=== PATIENT | female | born 1995 | race African-American/Black ===

== ENCOUNTER 2018-04-02 | Inpatient (IN) ==
[2018-04-02] MEDS ORDERED: Metoprolol Tartrate 25 MG Tablet PO ONE (01:23)
--- NOTE | 2018-04-02 02:44 | MR ---
EXAM DATE: 04/02/2018 2:01 AM EDT AGE/SEX: 22 years / Female INDICATIONS: . Bilateral lower leg pain for two months. CLINICAL DATA: This is the patient's initial encounter. Patient reports that signs and symptoms have been present for 2 months and indicates a pain score of 9/10. MEDICAL/SURGICAL HISTORY: Lupus. section. COMPARISON: No prior exams available for comparison. TECHNIQUE: Multiplanar, multisequence MRI of the lumbar spine was performed without contrast. Patie nt was scanned in a sitting position; neutral, flexion, and extension scans were performed in the sa gittal plane. FINDINGS: There are bilateral pars defects at the lumbosacral junction with a minimal grade 1 anterolisthesis. This does not result in significant spinal canal or foraminal stenosis. No discrete disc protrusions. Conus medullaris intact. CONCLUSION: 1. 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 No significant c anal or foraminal stenosis within the lumbar spine. Electronically signed by: Matthias Diallo MD 04/02/2018 2:42 AM EDT
[2018-04-02 03:17] LABS: Hematocrit 30.8 % (35.0-46.0); Hemoglobin 9.7 gm/dL (11.6-15.3); Mean Corpuscular HGB Conc 31.5 % (32.0-36.0); Mean Corpuscular Hemoglobin 25.7 pg (27.0-34.0); Mean Corpuscular Volume 81.5 fL (80.0-100.0); Platelet Count 463 th/mm3 (150-450); Red Blood Count 3.78 mil/mm3 (4.00-5.30); Red Cell Distribution Width 15.2 % (11.6-17.2); White Blood Count 4.8 th/mm3 (4.0-11.0)
[2018-04-02 03:50] LABS: Lymphocytes 49 % (9-44); Monocytes 12 % (0-8); Platelet Morphology Normal (Normal); RBC Morphology Normal (Normal)
[2018-04-02 03:56] LABS: Alkaline Phosphatase 54 U/L (45-117); Creatine Kinase 1117 U/L (26-192); Total Protein 9.6 g/dL (6.4-8.2)
[2018-04-02 04:15] LABS: Alanine Aminotransferase 81 U/L (10-53); Albumin 2.8 g/dL (3.4-5.0); Anion Gap 8 meq/L (5-15); Aspartate Aminotransferase 108 U/L (15-37); Blood Urea Nitrogen 16 mg/dL (7-18); Calcium 8.2 mg/dL (8.5-10.1); Carbon Dioxide 28.5 meq/L (21.0-32.0); Chloride 103 meq/L (98-107); Glomerular Filtration Rate Greater Than 89 mL/min (>89); Glucose,Random 88 mg/dL (74-106); Potassium 4.2 meq/L (3.5-5.1); Sodium 139 meq/L (136-145)
--- NOTE | 2018-04-02 04:21 | ED ---
HPI General Chief complaint: Extremity Problem,Nontraumatic Stated complaint: Foot/Leg pain and tingling Time Seen by Provider: 04/02/18 01:02 Source: patient Mode of arrival: ambulatory Limitations: no limitations History of Present Illness HPI Narrative: 22-year-old female came to the emergency room with history of bilateral lower extremity pain. Patient says that this pain has been going on for months now. She has mentioned this to her primary care who has referred her to a mixed livestock farmer. A working diagnosis of plantar fasciitis has been made. Patient was started on Advil but she has not been getting any relief. Patient has history of lupus and is on Plaquenil, CellCept and prednisone. Patient says the CellCept has recently been started and the pain has been there much before that. Patient has been on prednisone for many months. Patient sees a tearoom host/hostess for her lupus, Dr. Meredith. Patient describes the pain as left leg worse than the right. Pain initially was in the bottom of her feet and is now traveling more proximal. There is slightly tingling of her bilateral feet. Vital signs were suggestive of tachycardia. However patient says that she has history of tachycardia as mentioned to her by multiple physicians. However patient has not had any treatment or workup for it. She had her thyroid checked about 3 weeks ago and was told it was within normal limits. Pain is significant and getting worse. It is aching in quality. Pain gets worse upon walking. Complaint: Reports extremity pain Onset (ago): month(s) Pain Consistency: constant Location: Reports left, right and lower extremity Quality: Reports aching Radiation: Reports none Relieving factors: nothing Exacerbating factors: walking Associated symptoms: Reports denies other symptoms Related Data Previous Rx's Medication Instructions Recorded prednisone 50 mg PO DAILY 7 Days #7 tab 04/05/18 Allergies Allergy/AdvReac Type Severity Reaction Status Date / Time No Known Allergies Allergy Verified 04/02/18 00:15 Review of Systems ROS: all other systems reviewed are negative Musculoskeletal Reports myalgias PMFSH Medical History Medical History Lupus (Acute) Social History Social History Substance History: No History of Abuse Second Hand Smoke Exposure: No Smoking Status: Never smoker How Often Do You Have a Drink Containing Alcohol: Never Recent Travel in [facility] within the Last 8 Weeks: No Recent Out of Country Travel within the Last 8 Weeks: No Immunization History Tetanus Immunization: Unsure Exam Narrative Exam Narrative: GENERAL: Awake, alert, anxious, moderate distress SKIN: Focused skin assessment warm/dry. HEAD: Atraumatic. Normocephalic. EYES: Pupils equal and round. No scleral icterus. No injection or drainage. ENT: No nasal bleeding or discharge. Mucous membranes pink and moist. NECK: Trachea midline. No JVD. CARDIOVASCULAR: Regular rate and rhythm. No murmur appreciated. RESPIRATORY: No accessory muscle use. Clear to auscultation. Breath sounds equal bilaterally. GASTROINTESTINAL: Abdomen soft, non-tender, nondistended. Hepatic and splenic margins not palpable. MUSCULOSKELETAL: No obvious deformities. No clubbing. No cyanosis. No edema. Some muscular atrophy of lower extremity noticed in the calf muscle. Distal pulses intact. SLR was possible positive. NEUROLOGICAL: Awake and alert. No obvious cranial nerve deficits. Motor grossly within normal limits. Normal speech. PSYCHIATRIC: Appropriate mood and affect; insight and judgment normal. Course Initial Documented Vital Signs Temperature 100 F H 04/02/18 00:16 Pulse Rate 130 H 04/02/18 00:16 Respiratory Rate 14 04/02/18 00:16 Blood Pressure 129/84 04/02/18 00:16 Pulse Oximetry 99 04/02/18 00:16 Last Documented Vital Signs Temperature 97.9 F 04/05/18 20:00 Pulse Rate 88 04/05/18 20:00 Respiratory Rate 18 04/05/18 20:43 Blood Pressure 123/62 04/05/18 20:00 Pulse Oximetry 99 04/05/18 20:00 Medical Decision Making [facility] Narrative Medical decision making narrative: 4:30 AM patient was a difficult stick and eventually blood was obtained. Blood test results are back and suggestive of rhabdomyolysis. MRI of the lumbar spine was negative for any radiculopathy. There is moderately elevated platelet count as well. Patient was given Lopressor for her tachycardia with no significant change. I have ordered 1 L of IV fluid bolus. At this point I am concerned for myositis related to lupus versus medication related myositis. I discussed this with the patient and recommended admission. Patient was okay with it. I discussed the case with the hospitalist was accepted the patient. Medical Screen Exam Complete: Yes Emergency Medical Condition: Yes Lab Data Result diagrams: 04/05/18 08:21 04/05/18 10:31 POC Results POC Urine Results Negative Lab Results 04/02/18 04/02/18 04/02/18 Range/Units 03:10 03:10 08:54 WBC 4.8 (4.0-11.0) th/mm3 RBC 3.78 L (4.00-5.30) mil/mm3 Hgb 9.7 L (11.6-15.3) gm/dL Hct 30.8 L (35.0-46.0) % MCV 81.5 (80.0-100.0) fL MCH 25.7 L (27.0-34.0) pg MCHC 31.5 L (32.0-36.0) % RDW 15.2 (11.6-17.2) % Plt Count 463 H (150-450) th/mm3 MPV 7.0 (7.0-11.0) fL Prelim Diff (Auto) Slide review pending Neut % (Auto) (16.0-70.0) % Lymph % (Auto) (9.0-44.0) % [place] % (Auto) (0.0-8.0) % Eos % (Auto) (0.0-4.0) % Baso % (Auto) (0.0-2.0) % Neut # (Auto) (1.8-7.7) th/mm3 Lymph # (Auto) (1.0-4.8) th/mm3 [place] # (Auto) (0.0-0.9) th/mm3 Eos # (Auto) (0.0-0.4) th/mm3 Baso # (Auto) (0.0-0.2) th/mm3 WBC Differential Manual diff final Seg Neuts % (Manual) 36 (16-70) % Band Neuts % (Manual) 3 (0-6) % Lymphocytes % (Manual) 49 H (9-44) % Monocytes % (Manual) 12 H (0-8) % Plasma Cell % (Manual) (0-0) % Abs Neuts (Manual) 1.9 (1.8-7.7) th/mm3 Differential Comment . Toxic Granulation (None) Platelet Estimate High H (Normal) Platelet Morphology Normal (Normal) RBC Morphology Normal (Normal) ESR (0-20) mm/hr Sodium 139 (136-145) meq/L Potassium 4.2 (3.5-5.1) meq/L Chloride 103 (98-107) meq/L Carbon Dioxide 28.5 (21.0-32.0) meq/L Anion Gap 8 (5-15) meq/L BUN 16 (7-18) mg/dL Creatinine 0.85 (0.50-1.00) mg/dL Estimated GFR Greater than 89 (>89) mL/min Random Glucose 88 (74-106) mg/dL Calcium 8.2 L (8.5-10.1) mg/dL Magnesium (1.5-2.5) mg/dL Total Bilirubin 0.2 (0.2-1.0) mg/dL AST 108 H (15-37) U/L ALT 81 H (10-53) U/L Alkaline Phosphatase 54 (45-117) U/L Total Creatine Kinase 1117 H (26-192) U/L CK-MB (CK-2) 33.7 H (0.5-3.6) ng/mL CK-MB (CK-2) % 3.0 (0.0-4.0) % Total Protein 9.6 H (6.4-8.2) g/dL Albumin 2.8 L (3.4-5.0) g/dL Beta HCG, Qual (0-5) mIU/mL Urine Color Yellow (Yellw/Straw) Urine Clarity Clear (Clear) Urine pH 6.0 (5.0-8.5) Ur Specific [place] 1.018 (1.002-1.035) Urine Protein 500 or greater (Neg-Trace) mg/dL Urine Glucose (UA) Negative (Negative) mg/dL Urine Ketones Negative (Negative) mg/dL Urine Occult Blood Small H (Negative) Urine Nitrate Negative (Negative) Urine Bilirubin Negative (Negative) Urine Urobilinogen Less than 2 (Less than 2) mg/dL Ur Leukocyte Esterase Negative (Negative) Urine RBC 1 (0-3) /hpf Urine WBC 1 (0-5) /hpf Ur Squamous Epith Cells 1 (0-5) /hpf Hyaline Casts 4 (0-3) /lpf Urine Mucus Few H (Occasional) /lpf Urine Yeast Rare H (None) /hpf Micro UA Comment Culture not ind Ur Microscopic Review Not Reportable Urine Culture Comments Culture not ind Urine Opiates Screen (Neg) Ur Barbiturates Screen (Neg) Ur Amphetamines Screen (Neg) U Benzodiazepines Scrn (Neg) Urine Cocaine Screen (Neg) Mycophenolic Acid (1.0 - 3.5) mcg/mL MPA Glucuronide (35 - 100) mcg/mL U Cannabinoids Screen (Neg) Rheumatoid Factor Scrn (Negative) Rheumatoid Factor Titer JACKELYN Screen (Neg) 04/02/18 04/02/18 04/02/18 Range/Units 08:54 09:00 14:10 WBC (4.0-11.0) th/mm3 RBC (4.00-5.30) mil/mm3 Hgb (11.6-15.3) gm/dL Hct (35.0-46.0) % MCV (80.0-100.0) fL MCH (27.0-34.0) pg MCHC (32.0-36.0) % RDW (11.6-17.2) % Plt Count (150-450) th/mm3 MPV (7.0-11.0) fL Prelim Diff (Auto) Neut % (Auto) (16.0-70.0) % Lymph % (Auto) (9.0-44.0) % [place] % (Auto) (0.0-8.0) % Eos % (Auto) (0.0-4.0) % Baso % (Auto) (0.0-2.0) % Neut # (Auto) (1.8-7.7) th/mm3 Lymph # (Auto) (1.0-4.8) th/mm3 [place] # (Auto) (0.0-0.9) th/mm3 Eos # (Auto) (0.0-0.4) th/mm3 Baso # (Auto) (0.0-0.2) th/mm3 WBC Differential Seg Neuts % (Manual) (16-70) % Band Neuts % (Manual) (0-6) % Lymphocytes % (Manual) (9-44) % Monocytes % (Manual) (0-8) % Plasma Cell % (Manual) (0-0) % Abs Neuts (Manual) (1.8-7.7) th/mm3 Differential Comment Toxic Granulation (None) Platelet Estimate (Normal) Platelet Morphology (Normal) RBC Morphology (Normal) ESR (0-20) mm/hr Sodium (136-145) meq/L Potassium (3.5-5.1) meq/L Chloride (98-107) meq/L Carbon Dioxide (21.0-32.0) meq/L Anion Gap (5-15) meq/L BUN (7-18) mg/dL Creatinine (0.50-1.00) mg/dL Estimated GFR (>89) mL/min Random Glucose (74-106) mg/dL Calcium (8.5-10.1) mg/dL Magnesium (1.5-2.5) mg/dL Total Bilirubin (0.2-1.0) mg/dL AST (15-37) U/L ALT (10-53) U/L Alkaline Phosphatase (45-117) U/L Total Creatine Kinase 1046 H 996 H (26-192) U/L CK-MB (CK-2) 20.9 H 30.5 H (0.5-3.6) ng/mL CK-MB (CK-2) % 2.0 3.1 (0.0-4.0) % Total Protein (6.4-8.2) g/dL Albumin (3.4-5.0) g/dL Beta HCG, Qual Less than 1.0 (0-5) mIU/mL Urine Color (Yellw/Straw) Urine Clarity (Clear) Urine pH (5.0-8.5) Ur Specific [place] (1.002-1.035) Urine Protein (Neg-Trace) mg/dL Urine Glucose (UA) (Negative) mg/dL Urine Ketones (Negative) mg/dL Urine Occult Blood (Negative) Urine Nitrate (Negative) Urine Bilirubin (Negative) Urine Urobilinogen (Less than 2) mg/dL Ur Leukocyte Esterase (Negative) Urine RBC (0-3) /hpf Urine WBC (0-5) /hpf Ur Squamous Epith Cells (0-5) /hpf Hyaline Casts (0-3) /lpf Urine Mucus (Occasional) /lpf Urine Yeast (None) /hpf Micro UA Comment Ur Microscopic Review Urine Culture Comments Urine Opiates Screen Neg (Neg) Ur Barbiturates Screen Neg (Neg) Ur Amphetamines Screen Neg (Neg) U Benzodiazepines Scrn Neg (Neg) Urine Cocaine Screen Neg (Neg) Mycophenolic Acid (1.0 - 3.5) mcg/mL MPA Glucuronide (35 - 100) mcg/mL U Cannabinoids Screen Neg (Neg) Rheumatoid Factor Scrn (Negative) Rheumatoid Factor Titer JACKELYN Screen (Neg) 04/03/18 04/03/18 04/03/18 Range/Units 04:04 04:04 04:04 WBC 1.5 L (4.0-11.0) th/mm3 RBC 3.59 L (4.00-5.30) mil/mm3 Hgb 9.4 L (11.6-15.3) gm/dL Hct 29.6 L (35.0-46.0) % MCV 82.5 (80.0-100.0) fL MCH 26.2 L (27.0-34.0) pg MCHC 31.8 L (32.0-36.0) % RDW 16.0 (11.6-17.2) % Plt Count 417 (150-450) th/mm3 MPV 7.4 (7.0-11.0) fL Prelim Diff (Auto) Slide review pending Neut % (Auto) 39.6 (16.0-70.0) % Lymph % (Auto) 36.3 (9.0-44.0) % [place] % (Auto) 22.3 H (0.0-8.0) % Eos % (Auto) 1.3 (0.0-4.0) % Baso % (Auto) 0.5 (0.0-2.0) % Neut # (Auto) 0.6 L (1.8-7.7) th/mm3 Lymph # (Auto) 0.6 L (1.0-4.8) th/mm3 [place] # (Auto) 0.3 (0.0-0.9) th/mm3 Eos # (Auto) 0.0 (0.0-0.4) th/mm3 Baso # (Auto) 0.0 (0.0-0.2) th/mm3 WBC Differential Manual diff final Seg Neuts % (Manual) 45 (16-70) % Band Neuts % (Manual) 3 (0-6) % Lymphocytes % (Manual) 36 (9-44) % Monocytes % (Manual) 16 H (0-8) % Plasma Cell % (Manual) (0-0) % Abs Neuts (Manual) 0.7 L (1.8-7.7) th/mm3 Differential Comment . Toxic Granulation (None) Platelet Estimate Normal (Normal) Platelet Morphology Normal (Normal) RBC Morphology Normal (Normal) ESR 50 H (0-20) mm/hr Sodium 134 L (136-145) meq/L Potassium 4.3 (3.5-5.1) meq/L Chloride 101 (98-107) meq/L Carbon Dioxide 26.9 (21.0-32.0) meq/L Anion Gap 6 (5-15) meq/L BUN 9 (7-18) mg/dL Creatinine 0.66 (0.50-1.00) mg/dL Estimated GFR Greater than 89 (>89) mL/min Random Glucose 86 (74-106) mg/dL Calcium 8.4 L (8.5-10.1) mg/dL Magnesium (1.5-2.5) mg/dL Total Bilirubin 0.4 (0.2-1.0) mg/dL AST 86 H (15-37) U/L ALT 70 H (10-53) U/L Alkaline Phosphatase 48 (45-117) U/L Total Creatine Kinase 996 H (26-192) U/L CK-MB (CK-2) 29.1 H (0.5-3.6) ng/mL CK-MB (CK-2) % 2.9 (0.0-4.0) % Total Protein 9.0 H D (6.4-8.2) g/dL Albumin 2.5 L (3.4-5.0) g/dL Beta HCG, Qual (0-5) mIU/mL Urine Color (Yellw/Straw) Urine Clarity (Clear) Urine pH (5.0-8.5) Ur Specific [place] (1.002-1.035) Urine Protein (Neg-Trace) mg/dL Urine Glucose (UA) (Negative) mg/dL Urine Ketones (Negative) mg/dL Urine Occult Blood (Negative) Urine Nitrate (Negative) Urine Bilirubin (Negative) Urine Urobilinogen (Less than 2) mg/dL Ur Leukocyte Esterase (Negative) Urine RBC (0-3) /hpf Urine WBC (0-5) /hpf Ur Squamous Epith Cells (0-5) /hpf Hyaline Casts (0-3) /lpf Urine Mucus (Occasional) /lpf Urine Yeast (None) /hpf Micro UA Comment Ur Microscopic Review Urine Culture Comments Urine Opiates Screen (Neg) Ur Barbiturates Screen (Neg) Ur Amphetamines Screen (Neg) U Benzodiazepines Scrn (Neg) Urine Cocaine Screen (Neg) Mycophenolic Acid (1.0 - 3.5) mcg/mL MPA Glucuronide (35 - 100) mcg/mL U Cannabinoids Screen (Neg) Rheumatoid Factor Scrn Negative (Negative) Rheumatoid Factor Titer Not Reportable JACKELYN Screen (Neg) 04/03/18 04/04/18 04/04/18 Range/Units 09:27 05:16 05:16 WBC 0.7 L (4.0-11.0) th/mm3 RBC 3.57 L (4.00-5.30) mil/mm3 Hgb 9.3 L (11.6-15.3) gm/dL Hct 29.4 L (35.0-46.0) % MCV 82.4 (80.0-100.0) fL MCH 26.1 L (27.0-34.0) pg MCHC 31.7 L (32.0-36.0) % RDW 15.7 (11.6-17.2) % Plt Count 413 (150-450) th/mm3 MPV 7.5 (7.0-11.0) fL Prelim Diff (Auto) Slide review pending Neut % (Auto) 55.0 (16.0-70.0) % Lymph % (Auto) 31.3 (9.0-44.0) % [place] % (Auto) 12.9 H (0.0-8.0) % Eos % (Auto) 0.0 (0.0-4.0) % Baso % (Auto) 0.8 (0.0-2.0) % Neut # (Auto) 0.4 L* (1.8-7.7) th/mm3 Lymph # (Auto) 0.2 L (1.0-4.8) th/mm3 [place] # (Auto) 0.1 (0.0-0.9) th/mm3 Eos # (Auto) 0.0 (0.0-0.4) th/mm3 Baso # (Auto) 0.0 (0.0-0.2) th/mm3 WBC Differential Manual diff final Seg Neuts % (Manual) 74 H (16-70) % Band Neuts % (Manual) (0-6) % Lymphocytes % (Manual) 18 (9-44) % Monocytes % (Manual) 6 (0-8) % Plasma Cell % (Manual) 2 H (0-0) % Abs Neuts (Manual) 0.5 L* (1.8-7.7) th/mm3 Differential Comment . Toxic Granulation 1+ H (None) Platelet Estimate High H (Normal) Platelet Morphology Normal (Normal) RBC Morphology (Normal) ESR (0-20) mm/hr Sodium Cancelled (136-145) meq/L Potassium Cancelled (3.5-5.1) meq/L Chloride Cancelled (98-107) meq/L Carbon Dioxide Cancelled (21.0-32.0) meq/L Anion Gap Cancelled (5-15) meq/L BUN Cancelled (7-18) mg/dL Creatinine Cancelled (0.50-1.00) mg/dL Estimated GFR Cancelled (>89) mL/min Random Glucose Cancelled (74-106) mg/dL Calcium Cancelled (8.5-10.1) mg/dL Magnesium 2.0 (1.5-2.5) mg/dL Total Bilirubin (0.2-1.0) mg/dL AST (15-37) U/L ALT (10-53) U/L Alkaline Phosphatase (45-117) U/L Total Creatine Kinase 839 H (26-192) U/L CK-MB (CK-2) 25.0 H (0.5-3.6) ng/mL CK-MB (CK-2) % 3.0 (0.0-4.0) % Total Protein (6.4-8.2) g/dL Albumin (3.4-5.0) g/dL Beta HCG, Qual (0-5) mIU/mL Urine Color (Yellw/Straw) Urine Clarity (Clear) Urine pH (5.0-8.5) Ur Specific [place] (1.002-1.035) Urine Protein (Neg-Trace) mg/dL Urine Glucose (UA) (Negative) mg/dL Urine Ketones (Negative) mg/dL Urine Occult Blood (Negative) Urine Nitrate (Negative) Urine Bilirubin (Negative) Urine Urobilinogen (Less than 2) mg/dL Ur Leukocyte Esterase (Negative) Urine RBC (0-3) /hpf Urine WBC (0-5) /hpf Ur Squamous Epith Cells (0-5) /hpf Hyaline Casts (0-3) /lpf Urine Mucus (Occasional) /lpf Urine Yeast (None) /hpf Micro UA Comment Ur Microscopic Review Urine Culture Comments Urine Opiates Screen (Neg) Ur Barbiturates Screen (Neg) Ur Amphetamines Screen (Neg) U Benzodiazepines Scrn (Neg) Urine Cocaine Screen (Neg) Mycophenolic Acid (1.0 - 3.5) mcg/mL MPA Glucuronide (35 - 100) mcg/mL U Cannabinoids Screen (Neg) Rheumatoid Factor Scrn (Negative) Rheumatoid Factor Titer JACKELYN Screen Pos H (Neg) 04/04/18 04/04/18 04/05/18 Range/Units 05:16 11:24 08:21 WBC 9.5 (4.0-11.0) th/mm3 RBC 3.78 L (4.00-5.30) mil/mm3 Hgb 10.0 L (11.6-15.3) gm/dL Hct 30.8 L (35.0-46.0) % MCV 81.6 (80.0-100.0) fL MCH 26.5 L (27.0-34.0) pg MCHC 32.5 (32.0-36.0) % RDW 15.8 (11.6-17.2) % Plt Count 491 H (150-450) th/mm3 MPV 7.9 (7.0-11.0) fL Prelim Diff (Auto) Neut % (Auto) 84.3 H (16.0-70.0) % Lymph % (Auto) 6.0 L (9.0-44.0) % [place] % (Auto) 9.3 H (0.0-8.0) % Eos % (Auto) 0.0 (0.0-4.0) % Baso % (Auto) 0.4 (0.0-2.0) % Neut # (Auto) 8.0 H (1.8-7.7) th/mm3 Lymph # (Auto) 0.6 L (1.0-4.8) th/mm3 [place] # (Auto) 0.9 (0.0-0.9) th/mm3 Eos # (Auto) 0.0 (0.0-0.4) th/mm3 Baso # (Auto) 0.0 (0.0-0.2) th/mm3 WBC Differential . Seg Neuts % (Manual) (16-70) % Band Neuts % (Manual) (0-6) % Lymphocytes % (Manual) (9-44) % Monocytes % (Manual) (0-8) % Plasma Cell % (Manual) (0-0) % Abs Neuts (Manual) (1.8-7.7) th/mm3 Differential Comment Auto diff final Toxic Granulation (None) Platelet Estimate (Normal) Platelet Morphology (Normal) RBC Morphology (Normal) ESR (0-20) mm/hr Sodium 133 L (136-145) meq/L Potassium 4.6 (3.5-5.1) meq/L Chloride 98 (98-107) meq/L Carbon Dioxide 27.1 (21.0-32.0) meq/L Anion Gap 8 (5-15) meq/L BUN 8 (7-18) mg/dL Creatinine 0.62 (0.50-1.00) mg/dL Estimated GFR Greater than 89 (>89) mL/min Random Glucose 120 H (74-106) mg/dL Calcium 8.7 (8.5-10.1) mg/dL Magnesium (1.5-2.5) mg/dL Total Bilirubin 0.2 (0.2-1.0) mg/dL AST 81 H (15-37) U/L ALT 63 H (10-53) U/L Alkaline Phosphatase 53 (45-117) U/L Total Creatine Kinase (26-192) U/L CK-MB (CK-2) (0.5-3.6) ng/mL CK-MB (CK-2) % (0.0-4.0) % Total Protein 9.3 H (6.4-8.2) g/dL Albumin 2.3 L (3.4-5.0) g/dL Beta HCG, Qual (0-5) mIU/mL Urine Color (Yellw/Straw) Urine Clarity (Clear) Urine pH (5.0-8.5) Ur Specific [place] (1.002-1.035) Urine Protein (Neg-Trace) mg/dL Urine Glucose (UA) (Negative) mg/dL Urine Ketones (Negative) mg/dL Urine Occult Blood (Negative) Urine Nitrate (Negative) Urine Bilirubin (Negative) Urine Urobilinogen (Less than 2) mg/dL Ur Leukocyte Esterase (Negative) Urine RBC (0-3) /hpf Urine WBC (0-5) /hpf Ur Squamous Epith Cells (0-5) /hpf Hyaline Casts (0-3) /lpf Urine Mucus (Occasional) /lpf Urine Yeast (None) /hpf Micro UA Comment Ur Microscopic Review Urine Culture Comments Urine Opiates Screen (Neg) Ur Barbiturates Screen (Neg) Ur Amphetamines Screen (Neg) U Benzodiazepines Scrn (Neg) Urine Cocaine Screen (Neg) Mycophenolic Acid Less than 0.5 L (1.0 - 3.5) mcg/mL MPA Glucuronide Less than 10 L (35 - 100) mcg/mL U Cannabinoids Screen (Neg) Rheumatoid Factor Scrn (Negative) Rheumatoid Factor Titer JACKELYN Screen (Neg) 04/05/18 04/05/18 Range/Units 10:31 10:31 WBC (4.0-11.0) th/mm3 RBC (4.00-5.30) mil/mm3 Hgb (11.6-15.3) gm/dL Hct (35.0-46.0) % MCV (80.0-100.0) fL MCH (27.0-34.0) pg MCHC (32.0-36.0) % RDW (11.6-17.2) % Plt Count (150-450) th/mm3 MPV (7.0-11.0) fL Prelim Diff (Auto) Neut % (Auto) (16.0-70.0) % Lymph % (Auto) (9.0-44.0) % [place] % (Auto) (0.0-8.0) % Eos % (Auto) (0.0-4.0) % Baso % (Auto) (0.0-2.0) % Neut # (Auto) (1.8-7.7) th/mm3 Lymph # (Auto) (1.0-4.8) th/mm3 [place] # (Auto) (0.0-0.9) th/mm3 Eos # (Auto) (0.0-0.4) th/mm3 Baso # (Auto) (0.0-0.2) th/mm3 WBC Differential Seg Neuts % (Manual) (16-70) % Band Neuts % (Manual) (0-6) % Lymphocytes % (Manual) (9-44) % Monocytes % (Manual) (0-8) % Plasma Cell % (Manual) (0-0) % Abs Neuts (Manual) (1.8-7.7) th/mm3 Differential Comment Toxic Granulation (None) Platelet Estimate (Normal) Platelet Morphology (Normal) RBC Morphology (Normal) ESR (0-20) mm/hr Sodium 136 (136-145) meq/L Potassium 4.0 (3.5-5.1) meq/L Chloride 102 (98-107) meq/L Carbon Dioxide 27.3 (21.0-32.0) meq/L Anion Gap 7 (5-15) meq/L BUN 12 (7-18) mg/dL Creatinine 0.72 (0.50-1.00) mg/dL Estimated GFR Greater than 89 (>89) mL/min Random Glucose 157 H (74-106) mg/dL Calcium 8.7 (8.5-10.1) mg/dL Magnesium (1.5-2.5) mg/dL Total Bilirubin (0.2-1.0) mg/dL AST (15-37) U/L ALT (10-53) U/L Alkaline Phosphatase (45-117) U/L Total Creatine Kinase 493 H (26-192) U/L CK-MB (CK-2) 42.7 H (0.5-3.6) ng/mL CK-MB (CK-2) % 8.7 H* (0.0-4.0) % Total Protein (6.4-8.2) g/dL Albumin (3.4-5.0) g/dL Beta HCG, Qual (0-5) mIU/mL Urine Color (Yellw/Straw) Urine Clarity (Clear) Urine pH (5.0-8.5) Ur Specific [place] (1.002-1.035) Urine Protein (Neg-Trace) mg/dL Urine Glucose (UA) (Negative) mg/dL Urine Ketones (Negative) mg/dL Urine Occult Blood (Negative) Urine Nitrate (Negative) Urine Bilirubin (Negative) Urine Urobilinogen (Less than 2) mg/dL Ur Leukocyte Esterase (Negative) Urine RBC (0-3) /hpf Urine WBC (0-5) /hpf Ur Squamous Epith Cells (0-5) /hpf Hyaline Casts (0-3) /lpf Urine Mucus (Occasional) /lpf Urine Yeast (None) /hpf Micro UA Comment Ur Microscopic Review Urine Culture Comments Urine Opiates Screen (Neg) Ur Barbiturates Screen (Neg) Ur Amphetamines Screen (Neg) U Benzodiazepines Scrn (Neg) Urine Cocaine Screen (Neg) Mycophenolic Acid (1.0 - 3.5) mcg/mL MPA Glucuronide (35 - 100) mcg/mL U Cannabinoids Screen (Neg) Rheumatoid Factor Scrn (Negative) Rheumatoid Factor Titer JACKELYN Screen (Neg) Imaging Data Radiologist's impression: Chest X-Ray 04/02/18 00:00 CONCLUSION: Negative examination. Lumbar Spine MRI 04/02/18 01:23 CONCLUSION: 1. 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 No significant canal or foraminal stenosis within the lumbar spine. Ankle X-Ray 04/03/18 00:00 CONCLUSION: Evidence for previous trauma otherwise negative. Ankle X-Ray 04/03/18 00:00 CONCLUSION: Negative for fracture or dislocation. Followup in 7-10 days is suggested if symptoms persist. Venous Doppler Study 04/03/18 00:00 CONCLUSION: 1. Negative for deep venous thrombosis ECG Data Attestation: I personally reviewed and interpreted this ECG as follows: Prior ECG tracings: not available for review Interpretation: Twelve-lead EKG was reviewed by me. Normal sinus rhythm, normal axis, tachycardia, heart rate of 125 bpm, nonspecific ST-T wave changes. Discharge Plan Discharge Disposition Patient Disposition: 30 Still Patient Discharge Condition Condition: Stable Discharge Order Discharge Orders: Discharge Order (Routine); Ordered 04/05/18 Ordered By: Dayami Manning Physicians Team ED Provider: Dirk Lezama Primary Care Provider: NON STAFF,PROVIDER Attending Provider: Isiah Fofana Other Providers: Chuy Gibson ED Status: Left Department Discharge Information Discharge Date/Time: 04/02/18 14:48
[2018-04-02 04:33] LABS: Creatine Kinase MB 33.7 ng/mL (0.5-3.6)
[2018-04-02] MEDS ORDERED: Sod Chloride 0.9% Inj 1,000 ML IV.SIG SCH (04:45)
[2018-04-02] MEDS: Enoxaparin Inj 30 MG/0.3 ML Syringe SQ SCH (08:29)
[2018-04-02] MEDS: Senna/Docusate Sodium 8.6/50 MG Tablet PO SCH ×2 (08:29→20:32)
--- NOTE | 2018-04-02 09:01 | XR ---
EXAM DATE: 04/02/2018 12:00 AM EDT AGE/SEX: 22 years / Female INDICATIONS: Patient presents with tachycardia and bilateral lower extremity pain. CLINICAL DATA: This is the patient's initial encounter. Patient reports that signs and symptoms have been present for 2 months and indicates a pain score of 10/10. MEDICAL/SURGICAL HISTORY: . lupus section. COMPARISON: No prior exams available for comparison. FINDINGS: A single AP view of the chest demonstrates the lungs to be symmetrically aerated without evidence of mass, infiltrate or effusion. The cardiomediastinal contours are unremarkable. Osseous structures a re intact. CONCLUSION: Negative examination. Electronically signed by: Sharri De La Torre MD 04/02/2018 9:00 AM EDT
[2018-04-02 09:16] LABS: Bilirubin,Urine Negative (Negative); Clarity,Urine Clear (Clear); Color,Urine Yellow (Yellw/Straw); Glucose,Urine (UA) Negative (Negative); Hyaline Casts,Urine 4 /lpf (0-3); Leukocyte Esterase,Urine Negative (Negative); Mucus,Urine Few /lpf (Occasional); Nitrite,Urine Negative (Negative); Specific Gravity,Urine 1.018 (1.002-1.035); Squamous Epithelial Cell,Urine 1 /hpf (0-5)
[2018-04-02] MEDS: KCL 20 mEq/NACL 0.45% Inj 1,000 ML IV.CONT SCH ×2 (09:54→19:33)
[2018-04-02 10:09] LABS: Creatine Kinase 1046 U/L (26-192)
[2018-04-02 10:11] LABS: Amphetamine Screen,Urine Neg (Neg); Barbiturate Screen,Urine Neg (Neg); Cannabinoid Screen,Urine Neg (Neg); Cocaine Screen,Urine Neg (Neg)
[2018-04-02 10:22] LABS: Creatine Kinase MB 20.9 ng/mL (0.5-3.6)
[2018-04-02 10:31] LABS: Opiate Screen,Urine Neg (Neg)
--- NOTE | 2018-04-02 12:34 | ECG ---
Date Performed: 04/02/2018 Time Performed: 01:16:12 PTAGE: 22 years EKG: SINUS TACHYCARDIA NONSPECIFIC T-WAVE ABNORMALITY ABNORMAL RHYTHM ECG NO PREVIOUS TRACING DOCTOR: Jimi Larson Interpretating Date/Time 04/02/2018 12:33:00
[2018-04-02 15:12] LABS: CKMB Percent 3.1 % (0.0-4.0); Creatine Kinase MB 30.5 ng/mL (0.5-3.6)
--- NOTE | 2018-04-02 18:10 | P.HPIM ---
History of Present Illness Primary Care Physician: PROVIDER NON STAFF Chief Complaint: pain at heels and posterior calves History of Present Illness: Patient is a pleasant 22-year-old female who was diagnosed with lupus approximately May 2017. Patient states that her normal lupus pain is most pronounced in her shoulders and hips. Patient follows with a tv host locally Dr. Silverio Loya. Patient reports that she has been on prednisone for some time as high as 60 mg at one point, but now weaned down to 10 mg for the last month. Patient also has been taking Plaquenil for several months. Patient's tv host recently started Ms. Godinez on CellCept. Patient reported to the ER with complaint of worsening pain at her heels and posterior calves limiting her ability to walk. Patient was concerned that she had plantar fasciitis and self referred to podiatry. Patient was informed by podiatry the symptoms were not consistent with plantar fasciitis. Labs show that patient has a mild elevation in her transaminases. Patient denies alcohol consumption. Patient has no history of cirrhosis. Patient states elevation of transaminases (mild) has been noted in the past and I see this in the [facility] records. Upon admission patient's total creatinine kinase was elevated at 1117. Patient denies any recent trauma or fall. Patient denies use of illicit drugs. Patient denies previous episodes of similar symptoms. Patient states that the pain in her posterior legs and heels started approximately 3 weeks ago. Patient was started on CellCept approximately 1 week ago however, patient feels that the symptoms preceded being started on CellCept. Patient feels that she has lost approximately 15 pounds over the course the last year. Patient admitted to [facility] for further evaluation and treatment. PMH: - lupus PSH: c/s SHX: - Pt works as a adjunct nursing faculty -Patient denies alcohol, tobacco, or illicit street drugs ALL: NKDA - Diagnosis (1) Rhabdomyolysis (2) Weight loss (3) Lupus Inpatient Certification: I certify that the inpatient services were ordered in accordance with Medicare regulations governing the order. This includes certification that hospital inpatient services are reasonable and necessary and in the case of services not specified as inpatient-only under 42 CFR 419.22(n), that they are appropriately provided as inpatient services in accordance to with the 2-midnight benchmark under 43 CFR 412.3(e) Estimated Total Length of Stay (Days): 3 Plans for Post Hospital Care: Not yet determined Review of Systems Constitutional: Denies anorexia, Denies body ache(s), Denies chills, Denies fever(s), Denies night sweats, Denies poor appetite, Denies weight gain, Denies weight loss Eyes: Denies blind spots, Denies blurry vision, Denies change in vision, Denies double vision, Denies discharge, Denies loss of peripheral vision, Denies loss of vision, Denies other visual disturbances, Denies pain Ears, Nose, Mouth, and Throat: Denies bleeding gums, Denies difficulty swallowing, Denies dizziness, Denies headache(s), Denies hearing loss, Denies pain with swallowing, Denies poor balance, Denies ringing in the ears, Denies sore throat, Denies throat swelling, Denies tongue swelling Cardiovascular: Denies chest pain, Denies excessive sweating, Denies fainting, Denies fast heart rate, Denies generalized swelling, Denies irregular heart rhythm, Denies leg swelling, Denies lightheadedness, Denies slow heart rate Respiratory: Denies cough, Denies shortness of breath, Denies snoring, Denies wheezing Gastrointestinal: Denies abdominal pain, Denies belching, Denies black, tarry stools, Denies bright, red blood in stools, Denies change in bowel habits, Denies change in stools, Denies coffee ground vomit, Denies constipation, Denies cramping, Denies difficulty swallowing, Denies heartburn, Denies incontinent of stools, Denies loose stools, Denies nausea, Denies pain with swallowing, Denies vomiting, Denies vomiting blood Genitourinary: Denies abnormal vaginal bleeding, Denies blood in urine, Denies difficulty starting urination, Denies difficulty urinating, Denies frequent nighttime urination, Denies painful urination, Denies pelvic pain, Denies side pain, Denies urinary incontinence, Denies urinary hesitancy, Denies urinary urgency Musculoskeletal: Reports abnormal walking, Reports decreased muscle mass, Reports joint pain, Denies back pain, Denies body aches, Denies joint swelling, Denies muscle weakness, Denies neck pain, Denies numbness, Denies stiffness, Denies tingling Skin/Breast: Denies bleeding lesions, Denies change in skin color, Denies changing lesions, Denies itching, Denies lesions, Denies new lesions, Denies non -healing lesions, Denies redness, Denies sensitivity to light, Denies rash, Denies skin pain, Denies skin swelling, Denies skin ulcer, Denies sores, Denies unusual bruising, Denies wounds, Denies yellowing of the skin Neurologic: Denies abnormal hearing, Denies abnormal movements, Denies abnormal speech, Denies abnormal walking, Denies behavioral changes, Denies burning sensations, Denies confusion, Denies dizziness, Denies fainting, Denies frequent falls, Denies headache(s), Denies lack of coordination, Denies localized weakness, Denies loss of vision, Denies memory loss, Denies numbness, Denies other visual disturbances, Denies radiating pain, Denies restless legs, Denies convulsions, Denies seizure-like activity, Denies sensory deficit, Denies tingling/numbness/burning sensations, Denies tremor(s), Denies unsteadiness, Denies weakness Psychiatric: Denies abnormal sleep pattern, Denies anxiety, Denies behavioral changes, Denies change in appetite, Denies confusion, Denies depression, Denies difficulty concentrating, Denies hearing things others do not hear, Denies irritability, Denies lack of enjoyment, Denies memory loss, Denies mood swings, Denies panic attacks, Denies paranoia, Denies seeing things others do not see, Denies thoughts of hurting/killing others, Denies thoughts of hurting/killing yourself Endocrine: Denies cold intolerance, Denies excessive sweating, Denies fatigue, Denies flushing, Denies heat intolerance, Denies increased hunger, Denies increased thirst, Denies increased urination, Denies rapid, pounding, or irregular heartbeat Hematologic/Lymphatic: Denies easy bleeding, Denies easy bruising, Denies enlarged lymph nodes Allergic/Immunologic: Denies hives, Denies lip swelling, Denies throat swelling , Denies wheezing PMFSH - History History Provided By: Patient - Medical History Medical History: Medical History (Last Reviewed 04/02/18 @ 09:40 by Jesu Harden) Lupus - Tobacco History Second Hand Smoke Exposure: No Tobacco Use In Past 30 Days: No Smoking Status: Never smoker - Alcohol History How Often Do You Have a Drink Containing Alcohol: Never - Substance Use History Substance History: No History of Abuse - Travel History Recent Travel in the [place] Within the Last 8 Weeks: No Recent Travel Out of the Country Within the Last 8 Weeks: No - Immunization History Tetanus Immunization: Unsure Medications and Allergies Active Medications: Active Medications Hydrocodone Bitart/Acetaminophen ([place] 5/325) 1 tab PO Q4H PRN PRN Reason: PAIN SCALE 1 TO 10 Last Admin: 04/02/18 13:51 Dose: 1 tab Al Hydroxide/Mg Hydroxide (Milk Of Magnnatanael Liq) 30 ml PO Q12H PRN PRN Reason: Mild Constipation Enoxaparin Sodium (Lovenox Inj) 30 mg SQ Q24H [facility] Last Admin: 04/02/18 08:29 Dose: Not Given Sodium Chloride (Ns Inj) 1,000 mls @ 0 mls/hr IV.SIG BOLUS [facility] Potassium Chloride/Sodium Chloride (Potassium Chlor 20 Meq/Nacl 0.45% Inj) 1, 000 mls @ 84 mls/hr IV.CONT .[id number] [facility] Last Admin: 04/02/18 09:54 Dose: 84 mls/hr Ondansetron HCl (Zofran Inj) 4 mg IV.PUSH Q6H PRN PRN Reason: NAUSEA OR VOMITING Senna/Docusate Sodium (Char-Colace) 1 tab PO BID [facility] Last Admin: 04/02/18 08:29 Dose: Not Given Sennosides (Senokot) 17.2 mg PO Q12H PRN PRN Reason: Moderate Constipation Temazepam (Restoril) 15 mg PO HS PRN PRN Reason: INSOMNIA Allergies Allergy/AdvReac Type Severity Reaction Status Date / Time No Known Allergies Allergy Verified 04/02/18 00:15 Exam Vital signs: Vital Signs 04/02/18 00:16 04/02/18 00:34 04/02/18 04:20 Temperature 100 F H Pulse Rate 130 H 127 H 119 H Respiratory Rate 14 18 18 Blood Pressure 129/84 146/86 H 137/79 Pulse Oximetry 99 100 04/02/18 05:53 04/02/18 07:37 04/02/18 08:51 Temperature 100.2 F H Pulse Rate 121 H 119 H Respiratory Rate 18 Blood Pressure 137/79 123/67 Pulse Oximetry 98 04/02/18 09:54 04/02/18 12:00 04/02/18 16:00 Temperature 99.5 F 97.9 F 97.9 F Pulse Rate 102 H 96 H 105 H Respiratory Rate 18 16 14 Blood Pressure 117/64 133/77 113/68 Pulse Oximetry 100 100 98 Intake & Output 04/01/18 04/02/18 04/02/18 18:59 06:59 18:59 Weight 49.895 kg 49.895 kg Results - Labs CBC & Chem 7: 04/05/18 08:21 04/05/18 10:31 Labs: Short CBC 04/02/18 Range/Units 03:10 WBC 4.8 (4.0-11.0) th/mm3 Hgb 9.7 L (11.6-15.3) gm/dL Hct 30.8 L (35.0-46.0) % Plt Count 463 H (150-450) th/mm3 BMP 04/02/18 03:10 Sodium 139 Potassium 4.2 Chloride 103 Carbon Dioxide 28.5 BUN 16 Creatinine 0.85 Calcium 8.2 L Cardiac Enzymes 04/02/18 04/02/18 04/02/18 Range/Units 03:10 09:00 14:10 Total Creatine Kinase 1117 H 1046 H 996 H (26-192) U/L CK-MB (CK-2) 33.7 H 20.9 H 30.5 H (0.5-3.6) ng/mL Liver Function 04/02/18 Range/Units 03:10 Total Bilirubin 0.2 (0.2-1.0) mg/dL AST 108 H (15-37) U/L ALT 81 H (10-53) U/L Alkaline Phosphatase 54 (45-117) U/L Albumin 2.8 L (3.4-5.0) g/dL Urine 04/02/18 Range/Units 08:54 Urine Color Yellow (Yellw/Straw) Urine Clarity Clear (Clear) Urine pH 6.0 (5.0-8.5) Ur Specific [place] 1.018 (1.002-1.035) Urine Protein 500 or greater (Neg-Trace) mg/dL Urine Glucose (UA) Negative (Negative) mg/dL - Imaging Impressions Chest X-Ray 04/02/18 00:00 CONCLUSION: Negative examination. Lumbar Spine MRI 04/02/18 01:23 CONCLUSION: 1. 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 No significant canal or foraminal stenosis within the lumbar spine. Caprini VTE Risk Assessment Caprini VTE Risk Assessment: Moderate/High Risk (score >= 2) Caprini Risk Assessment Model: Point Value = 1 Point Value = 2 Point Value = 3 Point Value = 5 Age 41-60 Minor surgery BMI > 25 kg/m2 Swollen legs Varicose veins or History of unexplained or recurrent spontaneous Oral contraceptives or hormone replacement Sepsis (< 1 month) Serious lung disease, including pneumonia (< 1 month) Abnormal pulmonary function Acute myocardial infarction Congestive heart failure (< 1 month) History of inflammatory bowel disease Medical patient at bed rest Age 61-74 Arthroscopic surgery Major open surgery (> 45 min) Laparoscopic surgery (> 45 min) Malignancy Confined to bed (> 72 hours) Immobilizing plaster cast Central venous access Age >= 75 History of VTE Family history of VTE Factor V Leiden Prothrombin [id number] Lupus anticoagulant Anticardiolipin antibodies Elevated serum homocysteine Heparin-induced thrombocytopenia Other congenital or acquired thrombophilia Stroke (< 1 month) Elective arthroplasty Hip, pelvis, or leg fracture Acute spinal cord injury (< 1 month) Prophylaxis Regimen: Total Risk Factor Score Risk Level Prophylaxis Regimen 0-1 Low Early ambulation 2 Moderate Order ONE of the following: *Sequential Compression Device (SCD) *Heparin 5000 units SQ BID 3-4 Higher Order ONE of the following medications: *Heparin 5000 units SQ TID *Enoxaparin/Lovenox 40 mg SQ daily (WT < 150 kg, CrCl > 30 mL/min) *Enoxaparin/Lovenox 30 mg SQ daily (WT < 150 kg, CrCl > 10-29 mL/min) *Enoxaparin/Lovenox 30 mg SQ BID (WT < 150 kg, CrCl > 30 mL/min) AND/OR *Sequential Compression Device (SCD) 5 or more Highest Order ONE of the following medications: *Heparin 5000 units SQ TID (Preferred with Epidurals) *Enoxaparin/Lovenox 40 mg SQ daily (WT < 150 kg, CrCl > 30 mL/min) *Enoxaparin/Lovenox 30 mg SQ daily (WT < 150 kg, CrCl > 10-29 mL/min) *Enoxaparin/Lovenox 30 mg SQ BID (WT < 150 kg, CrCl > 30 mL/min) AND *Sequential Compression Device (SCD) Assessment and Plan - Assessment (1) Rhabdomyolysis Code(s): M62.82 - Rhabdomyolysis Status: Acute Plan: Patient is a pleasant 22-year-old female who was diagnosed with lupus approximately May 2017. Patient states that her normal lupus pain is most pronounced in her shoulders and hips. Patient follows with a tv host locally Dr. Silverio Loya. Patient reports that she has been on prednisone for some time as high as 60 mg at one point, but now weaned down to 10 mg for the last month. Patient also has been taking Plaquenil for several months. Patient's tv host recently started Ms. Godinez on CellCept. Patient reported to the ER with complaint of worsening pain at her heels and posterior calves limiting her ability to walk. Patient was concerned that she had plantar fasciitis and self referred to podiatry. Patient was informed by podiatry the symptoms were not consistent with plantar fasciitis. Labs show that patient has a mild elevation in her transaminases. Patient denies alcohol consumption. Patient has no history of cirrhosis. Patient states elevation of transaminases (mild) has been noted in the past and I see this in the [facility] records. Upon admission patient's total creatinine kinase was elevated at 1117. Patient denies any recent trauma or fall. Patient denies use of illicit drugs. Patient denies previous episodes of similar symptoms. Patient states that the pain in her posterior legs and heels started approximately 3 weeks ago. Patient was started on CellCept approximately 1 week ago however, patient feels that the symptoms preceded being started on CellCept. Patient feels that she has lost approximately 15 pounds over the course the last year. Patient admitted to [facility] for further evaluation and treatment. - CK 1117 (04/02), 996 (04/03) - continue IVFs - repeat CK in AM - hold lupus medications. - suspect medications and symptoms d/t cellcept and/or plaquenil, but etiology is NOT clear - repeat JACKELYN, sed rate, RF - lovenox - narcotics prn - supportive care (2) Weight loss Code(s): R63.4 - Abnormal weight loss Status: Acute (3) Lupus Code(s): L93.0 - Discoid lupus erythematosus Status: Acute H&P: Quality - VTE Deep Vein Thrombosis/Pulmonary Embolism Present on Admission: No
[2018-04-02] MEDS: HYDROmorphone PF Inj 1 MG/ML Ampul IV.PUSH PRN (20:33)
[2018-04-02] MEDS ORDERED: Temazepam 15 MG Capsule PO PRN (21:00)
[2018-04-03 05:28] LABS: Baso % (Auto) 0.5 % (0.0-2.0); Eos % (Auto) 1.3 % (0.0-4.0); Hematocrit 29.6 % (35.0-46.0); Hemoglobin 9.4 gm/dL (11.6-15.3); Lymph # (Auto) 0.6 th/mm3 (1.0-4.8); Lymph % (Auto) 36.3 % (9.0-44.0); Mean Corpuscular HGB Conc 31.8 % (32.0-36.0); Mean Corpuscular Hemoglobin 26.2 pg (27.0-34.0); Mean Corpuscular Volume 82.5 fL (80.0-100.0); Mean Platelet Volume 7.4 fL (7.0-11.0); Mono # (Auto) 0.3 th/mm3 (0.0-0.9); Mono % (Auto) 22.3 % (0.0-8.0); Neut # (Auto) 0.6 th/mm3 (1.8-7.7); Neut % (Auto) 39.6 % (16.0-70.0); Platelet Count 417 th/mm3 (150-450); Red Blood Count 3.59 mil/mm3 (4.00-5.30); White Blood Count 1.5 th/mm3 (4.0-11.0)
[2018-04-03 06:00] LABS: Albumin 2.5 g/dL (3.4-5.0); Anion Gap 6 meq/L (5-15); Aspartate Aminotransferase 86 U/L (15-37); Blood Urea Nitrogen 9 mg/dL (7-18); Calcium 8.4 mg/dL (8.5-10.1); Carbon Dioxide 26.9 meq/L (21.0-32.0); Chloride 101 meq/L (98-107); Glomerular Filtration Rate Greater Than 89 mL/min (>89); Glucose,Random 86 mg/dL (74-106); Potassium 4.3 meq/L (3.5-5.1); Sodium 134 meq/L (136-145)
[2018-04-03 06:06] LABS: Alanine Aminotransferase 70 U/L (10-53); Alkaline Phosphatase 48 U/L (45-117); Creatine Kinase 996 U/L (26-192)
[2018-04-03 06:28] LABS: CKMB Percent 2.9 % (0.0-4.0); Creatine Kinase MB 29.1 ng/mL (0.5-3.6)
[2018-04-03 07:21] LABS: Lymphocytes 36 % (9-44); Monocytes 16 % (0-8)
[2018-04-03 07:25] LABS: Platelet Estimate Normal (Normal); Platelet Morphology Normal (Normal)
[2018-04-03 07:26] LABS: RBC Morphology Normal (Normal)
[2018-04-03] MEDS: HYDROmorphone PF Inj 1 MG/ML Ampul IV.PUSH PRN ×2 (07:34→15:54)
[2018-04-03] MEDS: Enoxaparin Inj 30 MG/0.3 ML Syringe SQ SCH (07:35)
[2018-04-03] MEDS: KCL 20 mEq/NACL 0.45% Inj 1,000 ML IV.CONT SCH ×3 (07:42→21:08)
[2018-04-03] MEDS: Senna/Docusate Sodium 8.6/50 MG Tablet PO SCH ×3 (09:00→21:23)
--- NOTE | 2018-04-03 14:37 | ECG ---
Date Performed: 04/02/2018 Time Performed: 15:47:25 PTAGE: 22 years EKG: Sinus rhythm WITH SINUS ARRHYTHMIA SLIGHT ST CHANGE OF EARLY REPOLARIZATION Compared to previous tracing, heart r ate is slower and the slight changes of early repolarization are new. NORMAL ECG PREVIOUS TRACING : 04/02/2018 01.16 DOCTOR: Jimi Larson Interpretating Date/Time 04/03/2018 14:36:05
[2018-04-03] MEDS ORDERED: HYDROmorphone PF Inj 1 MG/ML Ampul IV.PUSH PRN (19:40)
--- NOTE | 2018-04-03 19:52 | P.PNIM ---
Subjective Interval history: Pt c/o continued pain at heels. Physical Exam Vital signs: 04/03/18 16:00 Temperature 99.6 F Pulse Rate 108 H Respiratory Rate 16 Blood Pressure 123/74 Pulse Oximetry 98 Narrative: GENERAL: This is a well-nourished, well-developed patient, in no apparent distress. CARDIOVASCULAR: Regular rate and rhythm without murmurs, gallops, or rubs. RESPIRATORY: Clear to auscultation. Breath sounds equal bilaterally. No wheezes , rales, or rhonchi. GASTROINTESTINAL: Abdomen soft, non-tender, nondistended. Normal active bowel sounds MUSCULOSKELETAL: Extremities without clubbing, cyanosis, or edema. NEURO: Alert & Oriented x4 to person, place, time, situation. Moves all ext x4 Results - Labs CBC & Chem 7: 04/03/18 04:04 04/03/18 04:04 Laboratory Results - last 24 hr 04/03/18 04/03/18 04/03/18 04:04 04:04 04:04 WBC 1.5 L RBC 3.59 L Hgb 9.4 L Hct 29.6 L MCV 82.5 MCH 26.2 L MCHC 31.8 L RDW 16.0 Plt Count 417 MPV 7.4 Prelim Diff (Auto) Slide review pending Neut % (Auto) 39.6 Lymph % (Auto) 36.3 [place] % (Auto) 22.3 H Eos % (Auto) 1.3 Baso % (Auto) 0.5 Neut # (Auto) 0.6 L Lymph # (Auto) 0.6 L [place] # (Auto) 0.3 Eos # (Auto) 0.0 Baso # (Auto) 0.0 WBC Differential Manual diff final Seg Neuts % (Manual) 45 Band Neuts % (Manual) 3 Lymphocytes % (Manual) 36 Monocytes % (Manual) 16 H Abs Neuts (Manual) 0.7 L Differential Comment . Platelet Estimate Normal Platelet Morphology Normal RBC Morphology Normal ESR 50 H Sodium 134 L Potassium 4.3 Chloride 101 Carbon Dioxide 26.9 Anion Gap 6 BUN 9 Creatinine 0.66 Estimated GFR Greater than 89 Random Glucose 86 Calcium 8.4 L Total Bilirubin 0.4 AST 86 H ALT 70 H Alkaline Phosphatase 48 Total Creatine Kinase 996 H CK-MB (CK-2) 29.1 H CK-MB (CK-2) % 2.9 Total Protein 9.0 H D Albumin 2.5 L Assessment and Plan - Assessment (1) Rhabdomyolysis Code(s): M62.82 - Rhabdomyolysis Status: Acute Plan: Patient is a pleasant 22-year-old female who was diagnosed with lupus approximately May 2017. Patient states that her normal lupus pain is most pronounced in her shoulders and hips. Patient follows with a kennel worker locally Dr. Silverio Loya. Patient reports that she has been on prednisone for some time as high as 60 mg at one point, but now weaned down to 10 mg for the last month. Patient also has been taking Plaquenil for several months. Patient's kennel worker recently started Ms. Godinez on CellCept. Patient reported to the ER with complaint of worsening pain at her heels and posterior calves limiting her ability to walk. Patient was concerned that she had plantar fasciitis and self referred to podiatry. Patient was informed by podiatry the symptoms were not consistent with plantar fasciitis. Labs show that patient has a mild elevation in her transaminases. Patient denies alcohol consumption. Patient has no history of cirrhosis. Patient states elevation of transaminases (mild) has been noted in the past and I see this in the [facility] records. Upon admission patient's total creatinine kinase was elevated at 1117. Patient denies any recent trauma or fall. Patient denies use of illicit drugs. Patient denies previous episodes of similar symptoms. Patient states that the pain in her posterior legs and heels started approximately 3 weeks ago. Patient was started on CellCept approximately 1 week ago however, patient feels that the symptoms preceded being started on CellCept. Patient feels that she has lost approximately 15 pounds over the course the last year. Patient admitted to [facility] for further evaluation and treatment. - myositis? - CK 1117 (04/02), 996 (04/03) - continue IVFs - repeat CK in AM - hold lupus medications. - ? symptoms d/t cellcept and/or plaquenil, but etiology is NOT clear - repeat JACKELYN, sed rate, RF --> pending - lovenox - narcotics prn - supportive care - Pt's kennel worker is Dr. Silverio Loya. - Case d/w Dr. Loya by phone (04/03/18) - etiology of symptoms unclear - start solumedrol 60mg IV BID - obtain aldolase - repeat CK in AM - obtain b/l LE US, r/o DVT, doubt. (2) Weight loss Code(s): R63.4 - Abnormal weight loss Status: Acute (3) Lupus Code(s): L93.0 - Discoid lupus erythematosus Status: Acute
--- NOTE | 2018-04-03 20:55 | US ---
EXAM DATE: 04/03/2018 12:00 AM EDT AGE/SEX: 22 years / Female INDICATIONS: Bilateral leg pain. CLINICAL DATA: This is the patient's initial encounter. Patient reports that signs and symptoms have been present for 1 month and indicates a pain score of 0/10. MEDICAL/SURGICAL HISTORY: Lupus. None. COMPARISON: No prior exams available for comparison. TECHNIQUE: Venous ultrasound of both lower extremities was performed from the inguinal ligament to t he proximal calf. Real-time, color Doppler and spectral tracing, compression and augmentation techni ques were used. FINDINGS: Right Leg: Normal compression of the deep venous system from the inguinal region to the proximal vesna f. No echogenic clot is seen. Normal response of the venous system to augmentation and respiration. Left Leg: Normal compression of the deep venous system from the inguinal region to the proximal calf . No echogenic clot is seen. Normal response of the venous system to augmentation and respiration. Other: Minimal inguinal adenopathy largest measuring 3.3 cm. CONCLUSION: 1. Negative for deep venous thrombosis Electronically signed by: Charanjit Hilario MD 04/03/2018 8:54 PM EDT
[2018-04-03] MEDS ORDERED: MethylPREDNISolone Sod Succinate Inj 125 MG/2 ML Vial IV.PUSH SCH (21:00)
--- NOTE | 2018-04-03 21:15 | XR ---
EXAM DATE: 04/03/2018 12:00 AM EDT AGE/SEX: 22 years / Female INDICATIONS: Pain in entire ankle. CLINICAL DATA: This is the patient's initial encounter. Patient reports that signs and symptoms have been present for 1 day and indicates a pain score of 3/10. MEDICAL/SURGICAL HISTORY: Lupus. None. COMPARISON: No prior exams available for comparison. FINDINGS: Bony structures are intact and in normal alignment. Joints are intact without dislocation or signifi cant arthropathy. Osseous density is normal. Soft tissues are unremarkable. No radiopaque foreign bodies seen. CONCLUSION: Negative for fracture or dislocation. Followup in 7-10 days is suggested if symptoms persist. Electronically signed by: Charanjit Hilario MD 04/03/2018 9:14 PM EDT
--- NOTE | 2018-04-03 21:16 | XR ---
EXAM DATE: 04/03/2018 12:00 AM EDT AGE/SEX: 22 years / Female INDICATIONS: Pain in entire ankle. CLINICAL DATA: This is the patient's initial encounter. Patient reports that signs and symptoms have been present for 1 day and indicates a pain score of 3/10. MEDICAL/SURGICAL HISTORY: Lupus. None. COMPARISON: No prior exams available for comparison. FINDINGS: Evidence for previous old trauma to the interosseous membrane. Alignment anatomic. Fracture not appre ciated. CONCLUSION: Evidence for previous trauma otherwise negative. Electronically signed by: Charanjit Hilario MD 04/03/2018 9:14 PM EDT
[2018-04-03] MEDS: MethylPREDNISolone Sod Succinate Inj 125 MG/2 ML Vial IV.PUSH SCH (21:22)
[2018-04-04] MEDS: KCL 20 mEq/NACL 0.45% Inj 1,000 ML IV.CONT SCH ×3 (05:17→18:24)
[2018-04-04 07:05] LABS: Baso % (Auto) 0.8 % (0.0-2.0); Hematocrit 29.4 % (35.0-46.0); Hemoglobin 9.3 gm/dL (11.6-15.3); Lymph # (Auto) 0.2 th/mm3 (1.0-4.8); Lymph % (Auto) 31.3 % (9.0-44.0); Mean Corpuscular HGB Conc 31.7 % (32.0-36.0); Mean Corpuscular Hemoglobin 26.1 pg (27.0-34.0); Mean Corpuscular Volume 82.4 fL (80.0-100.0); Mean Platelet Volume 7.5 fL (7.0-11.0); Mono # (Auto) 0.1 th/mm3 (0.0-0.9); Mono % (Auto) 12.9 % (0.0-8.0); Neut # (Auto) 0.4 th/mm3 (1.8-7.7); Platelet Count 413 th/mm3 (150-450); Red Blood Count 3.57 mil/mm3 (4.00-5.30); Red Cell Distribution Width 15.7 % (11.6-17.2)
[2018-04-04 07:30] LABS: White Blood Count 0.7 th/mm3 (4.0-11.0)
[2018-04-04 07:37] LABS: Alanine Aminotransferase 63 U/L (10-53); Albumin 2.3 g/dL (3.4-5.0); Anion Gap 8 meq/L (5-15); Aspartate Aminotransferase 81 U/L (15-37); Blood Urea Nitrogen 8 mg/dL (7-18); Calcium 8.7 mg/dL (8.5-10.1); Carbon Dioxide 27.1 meq/L (21.0-32.0); Chloride 98 meq/L (98-107); Glomerular Filtration Rate Greater Than 89 mL/min (>89); Glucose,Random 120 mg/dL (74-106); Potassium 4.6 meq/L (3.5-5.1); Sodium 133 meq/L (136-145)
[2018-04-04 07:39] LABS: Alkaline Phosphatase 53 U/L (45-117); Total Protein 9.3 g/dL (6.4-8.2)
[2018-04-04] MEDS: Enoxaparin Inj 30 MG/0.3 ML Syringe SQ SCH (08:30)
[2018-04-04] MEDS: MethylPREDNISolone Sod Succinate Inj 125 MG/2 ML Vial IV.PUSH SCH ×2 (08:30→21:35)
[2018-04-04] MEDS: Senna/Docusate Sodium 8.6/50 MG Tablet PO SCH ×2 (08:30→21:35)
[2018-04-04 08:45] LABS: Lymphocytes 18 % (9-44); Monocytes 6 % (0-8); Plasma Cells 2 % (0-0); Toxic Granulation 1+
[2018-04-04 08:46] LABS: Platelet Morphology Normal (Normal)
[2018-04-04] MEDS ORDERED: Sodium Chloride 0.9% 2 ML Flush PRN IV.FLUSH (10:06)
--- NOTE | 2018-04-04 13:25 | P.PNIM ---
Subjective Interval history: Follow up Rhabdomyolysis and Lupus Patient was started on Solumerdol 60 mg OV Q12H last night Patient reports this AM she feel better than she has in a long time Patient was able to ambulate with no pain No longer having pain in legs, calfs or heels Physical Exam Vital signs: Vital Signs 04/03/18 16:00 04/03/18 20:00 04/04/18 00:00 Temperature 99.6 F 99.1 F 99.6 F Pulse Rate 108 H 126 H 116 H Respiratory Rate 16 19 18 Blood Pressure 123/74 120/70 113/64 Pulse Oximetry 98 96 99 04/04/18 04:00 04/04/18 08:00 04/04/18 12:00 Temperature 98.9 F 97.9 F 97.9 F Pulse Rate 92 H 88 91 H Respiratory Rate 18 17 16 Blood Pressure 123/55 L 106/56 L 123/65 Pulse Oximetry 100 100 99 Intake & Output 04/03/18 04/04/18 04/04/18 18:59 06:59 18:59 Intake Total 4340 / 4340 965 / 965 1000 / 1000 Balance 4340 / 4340 965 / 965 1000 / 1000 Weight 45.2 kg Intake: IV 1999 965 / 965 1000 / 1000 Potassium Chlor 20 mEq/NACL 0. 1999 965 / 965 1000 / 1000 45% Inj 1,000 ML @ 84 mls/hr IV .CONT .[id number] [facility] Rx#:[id number] Oral 1240 / 1240 Other 1100 / 1100 Other: Other Intake Source Saline Solution # Voids 5 3 Date of Last Bowel Movement 04/02/18 04/02/18 04/02/18 Narrative: GENERAL: This is a thin, well-developed patient, in no apparent distress. CARDIOVASCULAR: Regular rate and rhythm without murmurs, gallops, or rubs. RESPIRATORY: Clear to auscultation. Breath sounds equal bilaterally. No wheezes , rales, or rhonchi. GASTROINTESTINAL: Abdomen soft, non-tender, nondistended. Normal active bowel sounds MUSCULOSKELETAL: Extremities without clubbing, cyanosis, or edema. generalized muscle wasting NEURO: Alert & Oriented x4 to person, place, time, situation. Moves all ext x4 Results - Labs CBC & Chem 7: 04/04/18 05:16 04/04/18 05:16 Laboratory Results - last 24 hr 04/03/18 04/04/18 04/04/18 04:04 05:16 05:16 WBC 0.7 L RBC 3.57 L Hgb 9.3 L Hct 29.4 L MCV 82.4 MCH 26.1 L MCHC 31.7 L RDW 15.7 Plt Count 413 MPV 7.5 Prelim Diff (Auto) Slide review pending Neut % (Auto) 55.0 Lymph % (Auto) 31.3 [place] % (Auto) 12.9 H Eos % (Auto) 0.0 Baso % (Auto) 0.8 Neut # (Auto) 0.4 L* Lymph # (Auto) 0.2 L [place] # (Auto) 0.1 Eos # (Auto) 0.0 Baso # (Auto) 0.0 WBC Differential Manual diff final Seg Neuts % (Manual) 74 H Lymphocytes % (Manual) 18 Monocytes % (Manual) 6 Plasma Cell % (Manual) 2 H Abs Neuts (Manual) 0.5 L* Differential Comment . Toxic Granulation 1+ H Platelet Estimate High H Platelet Morphology Normal Sodium Cancelled Potassium Cancelled Chloride Cancelled Carbon Dioxide Cancelled Anion Gap Cancelled BUN Cancelled Creatinine Cancelled Estimated GFR Cancelled Random Glucose Cancelled Calcium Cancelled Magnesium 2.0 Total Bilirubin AST ALT Alkaline Phosphatase Total Creatine Kinase 839 H CK-MB (CK-2) 25.0 H CK-MB (CK-2) % 3.0 Total Protein Albumin Rheumatoid Factor Scrn Negative Rheumatoid Factor Titer Not Reportable 04/04/18 05:16 WBC RBC Hgb Hct MCV MCH MCHC RDW Plt Count MPV Prelim Diff (Auto) Neut % (Auto) Lymph % (Auto) [place] % (Auto) Eos % (Auto) Baso % (Auto) Neut # (Auto) Lymph # (Auto) [place] # (Auto) Eos # (Auto) Baso # (Auto) WBC Differential Seg Neuts % (Manual) Lymphocytes % (Manual) Monocytes % (Manual) Plasma Cell % (Manual) Abs Neuts (Manual) Differential Comment Toxic Granulation Platelet Estimate Platelet Morphology Sodium 133 L Potassium 4.6 Chloride 98 Carbon Dioxide 27.1 Anion Gap 8 BUN 8 Creatinine 0.62 Estimated GFR Greater than 89 Random Glucose 120 H Calcium 8.7 Magnesium Total Bilirubin 0.2 AST 81 H ALT 63 H Alkaline Phosphatase 53 Total Creatine Kinase CK-MB (CK-2) CK-MB (CK-2) % Total Protein 9.3 H Albumin 2.3 L Rheumatoid Factor Scrn Rheumatoid Factor Titer - Imaging Impressions Ankle X-Ray 04/03/18 00:00 CONCLUSION: Evidence for previous trauma otherwise negative. Ankle X-Ray 04/03/18 00:00 CONCLUSION: Negative for fracture or dislocation. Followup in 7-10 days is suggested if symptoms persist. Venous Doppler Study 04/03/18 00:00 CONCLUSION: 1. Negative for deep venous thrombosis Assessment and Plan - Assessment (1) Rhabdomyolysis Code(s): M62.82 - Rhabdomyolysis Status: Acute Plan: Rhabdomyolysis/?myositis Lupus Patient is a pleasant 22-year-old female who was diagnosed with lupus approximately May 2017. Patient states that her normal lupus pain is most pronounced in her shoulders and hips. Patient follows with a mason apprentice locally Dr. Silverio Loya. Patient reports that she has been on prednisone for some time as high as 60 mg at one point, but now weaned down to 10 mg for the last month. Patient also has been taking Plaquenil for several months. Patient's mason apprentice recently started Ms. Godinez on CellCept. Patient reported to the ER with complaint of worsening pain at her heels and posterior calves limiting her ability to walk. Patient was concerned that she had plantar fasciitis and self referred to podiatry. Patient was informed by podiatry the symptoms were not consistent with plantar fasciitis. Labs show that patient has a mild elevation in her transaminases. Patient denies alcohol consumption. Patient has no history of cirrhosis. Patient states elevation of transaminases (mild) has been noted in the past and I see this in the [facility] records. Upon admission patient's total creatinine kinase was elevated at 1117. Patient denies any recent trauma or fall. Patient denies use of illicit drugs. Patient denies previous episodes of similar symptoms. Patient states that the pain in her posterior legs and heels started approximately 3 weeks ago. Patient was started on CellCept approximately 1 week ago however, patient feels that the symptoms preceded being started on CellCept. Patient feels that she has lost approximately 15 pounds over the course the last year. Patient admitted to [facility] for further evaluation and treatment. - myositis? - CK 1117 (04/02), 996 (04/03), 839 (04/04) - continue IVFs - repeat CK in AM - hold lupus medications. - ? symptoms d/t cellcept and/or plaquenil, but etiology is NOT clear - repeat JACKELYN, sed rate, RF --> pending - lovenox - narcotics prn - supportive care - Pt's mason apprentice is Dr. Silverio Loya. - Dr. Fofana discussed the case d/w Dr. Loya by phone (04/03/18) - etiology of symptoms unclear - start solumedrol 60mg IV BID - aldolase pending - repeat CK in AM - Ankle X-Ray 04/03/18 Evidence for previous trauma otherwise negative. - Ankle X-Ray 04/03/18 Negative for fracture or dislocation. Followup in 7-10 days is suggested if symptoms persist. - Venous Doppler Study 04/03/18 Negative for deep venous thrombosis Neutropenia - patient now with neutropenia possible medication related - consult hematology for assistance DVT prophylaxis with Lovenox The exam, history, and the medical decision-making described in the above note were completed with the assistance of the mid-level provider. I reviewed and agree with the findings presented. I attest that I had a [id number] encounter with the patient on the same day, and personally performed and documented my assessment and findings in the medical record. Pt diagnosed with lupus in 08/08. Pt says her sx's were primarily hand and feet pains/swelling. Pt says she was on 10mg prednisone daily up until about 1 1/2 months ago when she had alot of increase pain in her feet/ankles and dose increased to 60mg daily with slow taper back down to 10mg daily. In January she was started on plaquenil 01/31 and we only have a wbc about 2 weeks later which was 2.8. About a week ago cellcept started. Pt comes in for severe pains in calves/ ankles/feet and elevated ck noted. The concern was for plaquenil induced myositis as pt says her leg sx's appeared probably in January. Also not she has severe leukopenia and one would wonder if cellcept is causing this. Alternatively to drug side effects could her lupus be causing the sx's and drop in wbc ? sx's better today on higher dose prednisone. cellcept and plaquenil stopped. Tried calling her Physical Therapy Professor again today and Dr Fofana discussed it yesterday with Dr Loya her Physical Therapy Professor. Will ask hematology to comment on her Leukopenia and see if they feel it drug related vs sle vs some other cause. (2) Weight loss Code(s): R63.4 - Abnormal weight loss Status: Acute (3) Lupus Code(s): L93.0 - Discoid lupus erythematosus Status: Acute
[2018-04-04 16:45] LABS: Anti-Nuclear Antibody Screen Pos (Neg)
[2018-04-04] MEDS: Sodium Chloride 0.9% 2 ML Flush BID IV.FLUSH SCH (21:36)
[2018-04-05] MEDS: KCL 20 mEq/NACL 0.45% Inj 1,000 ML IV.CONT SCH ×3 (00:55→22:26)
--- NOTE | 2018-04-05 01:34 | MB ---
cc: Hakeem Gibson MD DATE: 04/04/2018 REASON FOR CONSULTATION: Consult requested by [facility], Dr. Fofana, for evaluation of severe neutropenia. HISTORY OF PRESENT ILLNESS: Licha is a 22-year-old female. She has a history of systemic lupus erythematosus, which was diagnosed in 02/2017. She is under the care of strategic business development, Dr. Loya. The patient has been treated with steroid and Plaquenil. Recently, she was tapered down on the prednisone and CellCept was added 4-5 days ago. The patient started having pain into her heels. She went to a solution specialist, who mentioned that she does not have plantar fasciitis and she needs to go to the emergency room. When the patient came to the ER, the blood test showed elevated CPK. The patient is admitted to the hospital for myositis or rhabdomyolysis. On admission, her CBC showed a white count of 4.8, hemoglobin 9.7, platelet count 463. Yesterday, her white count dropped to 1.5 and today, her white count is very low at 0.7 with an absolute neutrophil count of only 400. Because of the severe neutropenia, I have been asked to see her for further evaluation. The patient states that her pain in the heel has now completely resolved after she was started on Solu-Medrol. She does not have any fevers. She states that she is feeling much better since she is back on the steroid. The rest of the review of systems is negative. PAST MEDICAL HISTORY: Systemic lupus erythematosus. PAST SURGICAL HISTORY: . ALLERGIES: None. MEDICATIONS: Prior to coming to the hospital were CellCept and Plaquenil. She was tapered down on steroid. FAMILY HISTORY: Noncontributory. SOCIAL HISTORY: She works as a professional nursing assistant. She does not smoke cigarettes and does not drink alcohol. PHYSICAL EXAMINATION: GENERAL: Well-developed, young female in no apparent distress. VITAL SIGNS: Temperature 98.3, heart rate is 92, blood pressure 111/55. HEAD, EYES, EARS, NOSE, AND THROAT: Pupils equal, round, reactive to light and accommodation, extraocular movements intact. Anicteric. No oral lesions noted. No thrush noted. NECK: Supple. No JVD. No masses noted. LUNGS: Clear. No wheezing, rhonchi, or rales. HEART: Regular rate and rhythm. No murmur heard. ABDOMEN: Soft and nontender. No hepatosplenomegaly. No abnormal bowel sounds. No guarding or rigidity noted. EXTREMITIES: No pedal edema. No cyanosis, no clubbing. NEUROLOGIC: Awake, alert, oriented x 3. Sensory and motor seem to be intact. SKIN: No bruises or petechiae noted. BREASTS: No masses noted. LYMPH NODES: No cervical, supraclavicular, or axillary lymphadenopathy noted. BACK: There is no spinal tenderness noted. ASSESSMENT: 1. Acute, severe neutropenia, most likely due to CellCept and Plaquenil. 2. Elevated CPK level, most likely due to myositis. I doubt that she has rhabdomyolysis. PLAN: I have reviewed her available records and I have discussed with the patient regarding the acute leukopenia with neutropenia. When she came into the emergency room 2 days ago, her white count was normal at 4.8. Yesterday, her white count dropped to 1.5 and then today it dropped further to 0.7. The absolute neutrophil count was 700 yesterday and then today is only 500. She does not have any fevers. Neutropenic precautions have been initiated. I will start her on Neupogen 480 mcg starting today at 2:00 p.m. and will be given daily until her absolute neutrophil count is more than 5000. If she develops fever, then we will do the blood cultures, urine culture, and start her on empiric antibiotics to cover both gram-negative and gram-positive. Further recommendations based on her hospital stay. Thank you, Dr. Fofana, for asking my opinion. MD NORAH Bahena/maria c , 11:42 PM , 11:53 PM
[2018-04-05 07:53] VITALS: O2SAT 99
--- NOTE | 2018-04-05 09:14 | P.PNIM ---
Subjective Interval history: Patient reports she continues to feel well denies Fevers, chills, cough congestion, dysuria, diarrhea Patient able to ambulate about the room without pain Physical Exam Vital signs: Vital Signs 04/04/18 12:00 04/04/18 16:00 04/04/18 20:00 Temperature 97.9 F 97.6 F 98.3 F Pulse Rate 91 H 89 108 H Respiratory Rate 16 16 16 Blood Pressure 123/65 131/69 111/55 L Pulse Oximetry 99 100 98 04/04/18 22:37 04/04/18 23:32 04/05/18 04:00 Temperature 98.3 F 97.8 F Pulse Rate 86 76 Respiratory Rate 18 16 18 Blood Pressure 125/65 130/85 Pulse Oximetry 99 100 04/05/18 07:51 04/05/18 08:00 Temperature 98.1 F Pulse Rate 81 84 Respiratory Rate 17 14 Blood Pressure 120/58 L Pulse Oximetry 99 Intake & Output 04/04/18 04/05/18 04/05/18 18:59 06:59 18:59 Intake Total 3600 / 3600 1000 / 1000 Output Total 800 / 800 Balance 2800 / 2800 1000 / 1000 Weight 45.2 kg Intake: IV 1999 / 1999 1000 / 1000 Potassium Chlor 20 mEq/NACL 0. 2000 / 2000 1000 / 1000 45% Inj 1,000 ML @ 84 mls/hr IV .CONT .[id number] [facility] Rx#:[id number] Oral 1600 / 1600 Output: Urine 800 / 800 Other: # Voids 3 Date of Last Bowel Movement 04/04/18 04/05/18 # Bowel Movements 1 Narrative: GENERAL: This is a thin, well-developed patient, in no apparent distress. CARDIOVASCULAR: Regular rate and rhythm without murmurs, gallops, or rubs. RESPIRATORY: Clear to auscultation. Breath sounds equal bilaterally. No wheezes , rales, or rhonchi. GASTROINTESTINAL: Abdomen soft, non-tender, nondistended. Normal active bowel sounds MUSCULOSKELETAL: Extremities without clubbing, cyanosis, or edema. generalized muscle wasting NEURO: Alert & Oriented x4 to person, place, time, situation. Moves all ext x4 Results - Labs CBC & Chem 7: 04/05/18 08:21 04/05/18 10:31 Laboratory Results - last 24 hr 04/03/18 04/03/18 04:04 09:27 Rheumatoid Factor Scrn Negative Rheumatoid Factor Titer Not Reportable JACKELYN Screen Pos H Assessment and Plan - Assessment (1) Rhabdomyolysis Code(s): M62.82 - Rhabdomyolysis Status: Acute Plan: Rhabdomyolysis/?myositis Lupus Patient is a pleasant 22-year-old female who was diagnosed with lupus approximately May 2017. Patient states that her normal lupus pain is most pronounced in her shoulders and hips. Patient follows with a mixer attendant locally Dr. Silverio Loya. Patient reports that she has been on prednisone for some time as high as 60 mg at one point, but now weaned down to 10 mg for the last month. Patient also has been taking Plaquenil for several months. Patient's mixer attendant recently started Ms. Godinez on CellCept. Patient reported to the ER with complaint of worsening pain at her heels and posterior calves limiting her ability to walk. Patient was concerned that she had plantar fasciitis and self referred to podiatry. Patient was informed by podiatry the symptoms were not consistent with plantar fasciitis. Labs show that patient has a mild elevation in her transaminases. Patient denies alcohol consumption. Patient has no history of cirrhosis. Patient states elevation of transaminases (mild) has been noted in the past and I see this in the [facility] records. Upon admission patient's total creatinine kinase was elevated at 1117. Patient denies any recent trauma or fall. Patient denies use of illicit drugs. Pt diagnosed with lupus in 08/08. Pt says her sx's were primarily hand and feet pains/swelling. Pt says she was on 10mg prednisone daily up until about 1 1/2 months ago when she had alot of increase pain in her feet/ankles and dose increased to 60mg daily with slow taper back down to 10mg daily. In January she was started on plaquenil 01/31 and we only have a wbc about 2 weeks later which was 2.8. About a week ago cellcept started. Pt comes in for severe pains in calves/ ankles/feet and elevated ck noted. The concern was for plaquenil induced myositis as pt says her leg sx's appeared probably in January. Also not she has severe leukopenia and one would wonder if cellcept is causing this. Alternatively to drug side effects could her lupus be causing the sx's and drop in wbc ? sx's better today on higher dose prednisone. cellcept and plaquenil stopped. Her outpatient Case discussed with her outaptient Turbine Subassembler Dr. Loya. Will ask hematology to comment on her Leukopenia and see if they feel it drug related vs sle vs some other cause. - myositis? - CK 1117 (04/02), 996 (04/03), 839 (04/04) - continue IVFs - repeat CK in AM - hold lupus medications. - ? symptoms d/t cellcept and/or plaquenil, but etiology is NOT clear - repeat JACKELYN, sed rate, RF --> pending - lovenox - narcotics prn - supportive care - Pt's mixer attendant is Dr. Silverio Loya. - Dr. Fofana discussed the case d/w Dr. Loya by phone (04/03/18) - etiology of symptoms unclear - start solumedrol 60mg IV BID - aldolase pending - repeat CK in AM - Ankle X-Ray 04/03/18 Evidence for previous trauma otherwise negative. - Ankle X-Ray 04/03/18 Negative for fracture or dislocation. Followup in 7-10 days is suggested if symptoms persist. - Venous Doppler Study 04/03/18 Negative for deep venous thrombosis Neutropenia - patient now with neutropenia possible medication related - consult hematology for assistance - hematology started Neupogen 04/04 - recheck CBC pending - Discussed case with Dr. Gibson. per Dr. Gibson if WBC comes up may DC home later today (2) Weight loss Code(s): R63.4 - Abnormal weight loss Status: Acute (3) Lupus Code(s): L93.0 - Discoid lupus erythematosus Status: Acute
[2018-04-05 09:19] LABS: Baso % (Auto) 0.4 % (0.0-2.0); Hematocrit 30.8 % (35.0-46.0); Lymph # (Auto) 0.6 th/mm3 (1.0-4.8); Mean Corpuscular HGB Conc 32.5 % (32.0-36.0); Mean Corpuscular Hemoglobin 26.5 pg (27.0-34.0); Mean Corpuscular Volume 81.6 fL (80.0-100.0); Mean Platelet Volume 7.9 fL (7.0-11.0); Mono # (Auto) 0.9 th/mm3 (0.0-0.9); Mono % (Auto) 9.3 % (0.0-8.0); Neut % (Auto) 84.3 % (16.0-70.0); Platelet Count 491 th/mm3 (150-450); Red Blood Count 3.78 mil/mm3 (4.00-5.30); Red Cell Distribution Width 15.8 % (11.6-17.2); White Blood Count 9.5 th/mm3 (4.0-11.0)
[2018-04-05] MEDS: Enoxaparin Inj 30 MG/0.3 ML Syringe SQ SCH (09:23)
[2018-04-05] MEDS: MethylPREDNISolone Sod Succinate Inj 125 MG/2 ML Vial IV.PUSH SCH ×2 (09:24→20:15)
[2018-04-05] MEDS: Sodium Chloride 0.9% 2 ML Flush BID IV.FLUSH SCH ×2 (09:24→22:26)
[2018-04-05] MEDS: Senna/Docusate Sodium 8.6/50 MG Tablet PO SCH ×2 (09:24→22:27)
[2018-04-05 11:09] LABS: Anion Gap 7 meq/L (5-15); Blood Urea Nitrogen 12 mg/dL (7-18); Calcium 8.7 mg/dL (8.5-10.1); Carbon Dioxide 27.3 meq/L (21.0-32.0); Chloride 102 meq/L (98-107); Glomerular Filtration Rate Greater Than 89 mL/min (>89); Glucose,Random 157 mg/dL (74-106); Sodium 136 meq/L (136-145)
--- NOTE | 2018-04-05 11:13 | P.DS ---
<Dayami Manning W - Last Filed: 04/05/18 11:11> Date of admission: 04/02/18 04:27 Primary care physician: PROVIDER NON STAFF Attending physician on discharge: Jimi Foster Anticipated date of discharge: 04/05/18 Brief History from admission: Patient is a pleasant 22-year-old female who was diagnosed with lupus approximately May 2017. Patient states that her normal lupus pain is most pronounced in her shoulders and hips. Patient follows with a clinical services specialist locally Dr. Silverio Loya. Patient reports that she has been on prednisone for some time as high as 60 mg at one point, but now weaned down to 10 mg for the last month. Patient also has been taking Plaquenil for several months. Patient's clinical services specialist recently started Ms. Godinez on CellCept. Patient reported to the ER with complaint of worsening pain at her heels and posterior calves limiting her ability to walk. Patient was concerned that she had plantar fasciitis and self referred to podiatry. Patient was informed by podiatry the symptoms were not consistent with plantar fasciitis. Labs show that patient has a mild elevation in her transaminases. Patient denies alcohol consumption. Patient has no history of cirrhosis. Patient states elevation of transaminases (mild) has been noted in the past and I see this in the [facility] records. Upon admission patient's total creatinine kinase was elevated at 1117. Patient denies any recent trauma or fall. Patient denies use of illicit drugs. Patient denies previous episodes of similar symptoms. Patient states that the pain in her posterior legs and heels started approximately 3 weeks ago. Patient was started on CellCept approximately 1 week ago however, patient feels that the symptoms preceded being started on CellCept. Patient feels that she has lost approximately 15 pounds over the course the last year. Patient admitted to [facility] for further evaluation and treatment. PMH: - lupus PSH: c/s SHX: - Pt works as a rehab nursing tech -Patient denies alcohol, tobacco, or illicit street drugs ALL: NKDA DS: Diagnosis - Discharge Diagnosis (1) Rhabdomyolysis Status: Acute (2) Weight loss Status: Acute (3) Lupus Status: Acute DS: Medications - Discharge Medications Prescriptions: prednisone 50 mg PO DAILY 7 Days #7 tab DS: Summary Hospital Course: Rhabdomyolysis/?myositis Lupus Patient is a pleasant 22-year-old female who was diagnosed with lupus approximately May 2017. Patient states that her normal lupus pain is most pronounced in her shoulders and hips. Patient follows with a clinical services specialist locally Dr. Silverio Loya. Patient reports that she has been on prednisone for some time as high as 60 mg at one point, but now weaned down to 10 mg for the last month. Patient also has been taking Plaquenil for several months. Patient's clinical services specialist recently started Ms. Godinez on CellCept. Patient reported to the ER with complaint of worsening pain at her heels and posterior calves limiting her ability to walk. Patient was concerned that she had plantar fasciitis and self referred to podiatry. Patient was informed by podiatry the symptoms were not consistent with plantar fasciitis. Labs show that patient has a mild elevation in her transaminases. Patient denies alcohol consumption. Patient has no history of cirrhosis. Patient states elevation of transaminases (mild) has been noted in the past and I see this in the [facility] records. Upon admission patient's total creatinine kinase was elevated at 1117. Patient denies any recent trauma or fall. Patient denies use of illicit drugs. Pt diagnosed with lupus in 08/08. Pt says her sx's were primarily hand and feet pains/swelling. Pt says she was on 10mg prednisone daily up until about 1 1/2 months ago when she had alot of increase pain in her feet/ankles and dose increased to 60mg daily with slow taper back down to 10mg daily. In January she was started on plaquenil 01/31 and we only have a wbc about 2 weeks later which was 2.8. About a week ago cellcept started. Pt comes in for severe pains in calves/ ankles/feet and elevated ck noted. The concern was for plaquenil induced myositis as pt says her leg sx's appeared probably in January. Also not she has severe leukopenia and one would wonder if cellcept is causing this. Alternatively to drug side effects could her lupus be causing the sx's and drop in wbc ? sx's better today on higher dose prednisone. cellcept and plaquenil stopped. Her outpatient Case discussed with her outaptient [employer] Dr. Loya. Will ask hematology to comment on her Leukopenia and see if they feel it drug related vs sle vs some other cause. - myositis? - CK 1117 (04/02), 996 (04/03), 839 (04/04) - continue IVFs - repeat CK in AM - hold lupus medications. - ? symptoms d/t cellcept and/or plaquenil, but etiology is NOT clear - repeat JACKELYN, sed rate, RF --> pending - lovenox - narcotics prn - supportive care - Pt's clinical services specialist is Dr. Silverio Loya. - Dr. Fofana discussed the case d/w Dr. Loya by phone (04/03/18) - etiology of symptoms unclear - start solumedrol 60mg IV BID - aldolase pending - Ankle X-Ray 04/03/18 Evidence for previous trauma otherwise negative. - Ankle X-Ray 04/03/18 Negative for fracture or dislocation. Followup in 7-10 days is suggested if symptoms persist. - Venous Doppler Study 04/03/18 Negative for deep venous thrombosis Neutropenia - patient now with neutropenia possible medication related - consult hematology for assistance - hematology started Neupogen 04/04 - Discussed case with Dr. Gibson. per Dr. Gibson if WBC comes up may DC home later today - recheck CBC WBC 9.5 (04/05) - Time Spent with Patient Total time spent providing and/or coordinating discharge services: Greater than 30 minutes - Quality: VTE Deep Vein Thrombosis/Pulmonary Embolism Present on Admission: No Exam Vital signs: Vital Signs 04/04/18 12:00 04/04/18 16:00 04/04/18 20:00 Temperature 97.9 F 97.6 F 98.3 F Pulse Rate 91 H 89 108 H Respiratory Rate 16 16 16 Blood Pressure 123/65 131/69 111/55 L Pulse Oximetry 99 100 98 04/04/18 22:37 04/04/18 23:32 04/05/18 04:00 Temperature 98.3 F 97.8 F Pulse Rate 86 76 Respiratory Rate 18 16 18 Blood Pressure 125/65 130/85 Pulse Oximetry 99 100 04/05/18 07:51 04/05/18 08:00 Temperature 98.1 F Pulse Rate 81 84 Respiratory Rate 17 14 Blood Pressure 120/58 L Pulse Oximetry 99 Intake & Output 04/04/18 04/05/18 04/05/18 18:59 06:59 18:59 Intake Total 3600 / 3600 1000 / 1000 1000 / 1000 Output Total 800 / 800 Balance 2800 / 2800 1000 / 1000 1000 / 1000 Weight 45.2 kg Intake: IV 1999 1000 / 1000 1000 / 1000 Potassium Chlor 20 mEq/NACL 0. 1999 1000 / 1000 1000 / 1000 45% Inj 1,000 ML @ 84 mls/hr IV .CONT .[id number] [facility] Rx#:[id number] Oral 1600 / 1600 Output: Urine 800 / 800 Other: # Voids 3 Date of Last Bowel Movement 04/04/18 04/05/18 04/05/18 # Bowel Movements 1 Narrative: GENERAL: This is a thin, well-developed patient, in no apparent distress. CARDIOVASCULAR: Regular rate and rhythm without murmurs, gallops, or rubs. RESPIRATORY: Clear to auscultation. Breath sounds equal bilaterally. No wheezes , rales, or rhonchi. GASTROINTESTINAL: Abdomen soft, non-tender, nondistended. Normal active bowel sounds MUSCULOSKELETAL: Extremities without clubbing, cyanosis, or edema. generalized muscle wasting NEURO: Alert & Oriented x4 to person, place, time, situation. Moves all ext x4 Results Procedures completed during hospitalization: none Labs on day of discharge: Labs from last 24 hours 04/05/18 04/05/18 04/05/18 10:31 10:31 08:21 WBC 9.5 RBC 3.78 L Hgb 10.0 L Hct 30.8 L MCV 81.6 MCH 26.5 L MCHC 32.5 RDW 15.8 Plt Count 491 H MPV 7.9 Neut % (Auto) 84.3 H Lymph % (Auto) 6.0 L Yancey % (Auto) 9.3 H Eos % (Auto) 0.0 Baso % (Auto) 0.4 Neut # (Auto) 8.0 H Lymph # (Auto) 0.6 L Yancey # (Auto) 0.9 Eos # (Auto) 0.0 Baso # (Auto) 0.0 WBC Differential . Differential Comment Auto diff final Sodium 136 Potassium 4.0 Chloride 102 Carbon Dioxide 27.3 Anion Gap 7 BUN 12 Creatinine 0.72 Estimated GFR Greater than 89 Random Glucose 157 H Calcium 8.7 Total Creatine Kinase Pending Mycophenolic Acid MPA Glucuronide Rheumatoid Factor Scrn Rheumatoid Factor Titer JACKELYN Screen JACKELYN Titer JACKELYN Pattern JACKELYN Interpretation 04/04/18 04/03/18 04/03/18 11:24 09:27 04:04 WBC RBC Hgb Hct MCV MCH MCHC RDW Plt Count MPV Neut % (Auto) Lymph % (Auto) Yancey % (Auto) Eos % (Auto) Baso % (Auto) Neut # (Auto) Lymph # (Auto) Yancey # (Auto) Eos # (Auto) Baso # (Auto) WBC Differential Differential Comment Sodium Potassium Chloride Carbon Dioxide Anion Gap BUN Creatinine Estimated GFR Random Glucose Calcium Total Creatine Kinase Mycophenolic Acid Pending MPA Glucuronide Pending Rheumatoid Factor Scrn Negative Rheumatoid Factor Titer Not Reportable JACKELYN Screen Pos H JACKELYN Titer Pending JACKELYN Pattern Pending JACKELYN Interpretation Pending - Impressions ITS Impressions Chest X-Ray 04/02/18 00:00 CONCLUSION: Negative examination. Lumbar Spine MRI 04/02/18 01:23 CONCLUSION: 1. 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 No significant canal or foraminal stenosis within the lumbar spine. Ankle X-Ray 04/03/18 00:00 CONCLUSION: Evidence for previous trauma otherwise negative. Venous Doppler Study 04/03/18 00:00 CONCLUSION: 1. Negative for deep venous thrombosis <Jimi Foster L - Last Filed: 04/05/18 12:51> Date of admission: 04/02/18 04:27 Primary care physician: PROVIDER NON STAFF DS: Diagnosis - Discharge Diagnosis (1) Rhabdomyolysis Status: Acute (2) Weight loss Status: Acute (3) Lupus Status: Acute DS: Summary - Time Spent with Patient Total time spent providing and/or coordinating discharge services: Exam Vital signs: Vital Signs 04/04/18 16:00 04/04/18 20:00 04/04/18 22:37 Temperature 97.6 F 98.3 F Pulse Rate 89 108 H Respiratory Rate 16 16 18 Blood Pressure 131/69 111/55 L Pulse Oximetry 100 98 04/04/18 23:32 04/05/18 04:00 04/05/18 07:51 Temperature 98.3 F 97.8 F 98.1 F Pulse Rate 86 76 81 Respiratory Rate 16 18 17 Blood Pressure 125/65 130/85 120/58 L Pulse Oximetry 99 100 99 04/05/18 08:00 04/05/18 12:00 Temperature 97.9 F Pulse Rate 84 104 H Respiratory Rate 14 16 Blood Pressure 124/69 Pulse Oximetry 99 Intake & Output 04/04/18 04/05/18 04/05/18 18:59 06:59 18:59 Intake Total 3600 / 3600 1000 / 1000 1000 / 1000 Output Total 800 / 800 Balance 2800 / 2800 1000 / 1000 1000 / 1000 Weight 45.2 kg Intake: IV 1999 / 1999 1000 / 1000 1000 / 1000 Potassium Chlor 20 mEq/NACL 0. 1999 / 1999 1000 / 1000 1000 / 1000 45% Inj 1,000 ML @ 84 mls/hr IV .CONT .[id number] [facility] Rx#:[id number] Oral 1600 / 1600 Output: Urine 800 / 800 Other: # Voids 3 Date of Last Bowel Movement 04/04/18 04/05/18 04/05/18 # Bowel Movements 1 Results Labs on day of discharge: Labs from last 24 hours 04/05/18 04/05/18 04/05/18 10:31 10:31 08:21 WBC 9.5 RBC 3.78 L Hgb 10.0 L Hct 30.8 L MCV 81.6 MCH 26.5 L MCHC 32.5 RDW 15.8 Plt Count 491 H MPV 7.9 Neut % (Auto) 84.3 H Lymph % (Auto) 6.0 L Yancey % (Auto) 9.3 H Eos % (Auto) 0.0 Baso % (Auto) 0.4 Neut # (Auto) 8.0 H Lymph # (Auto) 0.6 L Yancey # (Auto) 0.9 Eos # (Auto) 0.0 Baso # (Auto) 0.0 WBC Differential . Differential Comment Auto diff final Sodium 136 Potassium 4.0 Chloride 102 Carbon Dioxide 27.3 Anion Gap 7 BUN 12 Creatinine 0.72 Estimated GFR Greater than 89 Random Glucose 157 H Calcium 8.7 Total Creatine Kinase 493 H CK-MB (CK-2) 42.7 H CK-MB (CK-2) % 8.7 H* JACKELYN Screen JACKELYN Titer JACKELYN Pattern JACKELYN Interpretation 04/03/18 09:27 WBC RBC Hgb Hct MCV MCH MCHC RDW Plt Count MPV Neut % (Auto) Lymph % (Auto) Yancey % (Auto) Eos % (Auto) Baso % (Auto) Neut # (Auto) Lymph # (Auto) Yancey # (Auto) Eos # (Auto) Baso # (Auto) WBC Differential Differential Comment Sodium Potassium Chloride Carbon Dioxide Anion Gap BUN Creatinine Estimated GFR Random Glucose Calcium Total Creatine Kinase CK-MB (CK-2) CK-MB (CK-2) % JACKELYN Screen Pos H JACKELYN Titer Pending JACKELYN Pattern Pending JACKELYN Interpretation Pending - Impressions ITS Impressions Chest X-Ray 04/02/18 00:00 CONCLUSION: Negative examination. Lumbar Spine MRI 04/02/18 01:23 CONCLUSION: 1. 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 No significant canal or foraminal stenosis within the lumbar spine. Ankle X-Ray 04/03/18 00:00 CONCLUSION: Evidence for previous trauma otherwise negative. Venous Doppler Study 04/03/18 00:00 CONCLUSION: 1. Negative for deep venous thrombosis Discharge Plan - Physicians Team Primary Care Provider: NON STAFF,PROVIDER Attending Provider: Isiah Fofana Other Providers: Nakia Gibson MD
[2018-04-05 11:30] LABS: Creatine Kinase MB 42.7 ng/mL (0.5-3.6)
[2018-04-05 11:33] LABS: CKMB Percent 8.7 % (0.0-4.0)
--- NOTE | 2018-04-05 14:31 | P.PNONC ---
Subjective Interval history: Patient sitting up in chair, in no acute distress. She reports she is getting discharged today. She has no complaints at this time. Objective Vital Signs/Intake & Output: Vital Signs 04/04/18 16:00 04/04/18 20:00 04/04/18 22:37 Temperature 97.6 F 98.3 F Pulse Rate 89 108 H Respiratory Rate 16 16 18 Blood Pressure 131/69 111/55 L Pulse Oximetry 100 98 04/04/18 23:32 04/05/18 04:00 04/05/18 07:51 Temperature 98.3 F 97.8 F 98.1 F Pulse Rate 86 76 81 Respiratory Rate 16 18 17 Blood Pressure 125/65 130/85 120/58 L Pulse Oximetry 99 100 99 04/05/18 08:00 04/05/18 12:00 Temperature 97.9 F Pulse Rate 84 104 H Respiratory Rate 14 16 Blood Pressure 124/69 Pulse Oximetry 99 Intake & Output 04/04/18 04/05/18 04/05/18 18:59 06:59 18:59 Intake Total 3600 / 3600 1000 / 1000 1000 / 1000 Output Total 800 / 800 Balance 2800 / 2800 1000 / 1000 1000 / 1000 Weight 45.2 kg Intake: IV 2000 / 2000 1000 / 1000 1000 / 1000 Potassium Chlor 20 mEq/NACL 0. 2000 / 2000 1000 / 1000 1000 / 1000 45% Inj 1,000 ML @ 84 mls/hr IV .CONT .[id number] [facility] Rx#:[id number] Oral 1600 / 1600 Output: Urine 800 / 800 Other: # Voids 3 Date of Last Bowel Movement 04/04/18 04/05/18 04/05/18 # Bowel Movements 1 Result Diagrams: 04/05/18 08:21 04/05/18 10:31 Laboratory Results: Laboratory Results - last 24 hr 04/03/18 04/05/18 04/05/18 09:27 08:21 10:31 WBC 9.5 RBC 3.78 L Hgb 10.0 L Hct 30.8 L MCV 81.6 MCH 26.5 L MCHC 32.5 RDW 15.8 Plt Count 491 H MPV 7.9 Neut % (Auto) 84.3 H Lymph % (Auto) 6.0 L Randall % (Auto) 9.3 H Eos % (Auto) 0.0 Baso % (Auto) 0.4 Neut # (Auto) 8.0 H Lymph # (Auto) 0.6 L Randall # (Auto) 0.9 Eos # (Auto) 0.0 Baso # (Auto) 0.0 WBC Differential . Differential Comment Auto diff final Sodium Potassium Chloride Carbon Dioxide Anion Gap BUN Creatinine Estimated GFR Random Glucose Calcium Total Creatine Kinase 493 H CK-MB (CK-2) 42.7 H CK-MB (CK-2) % 8.7 H* JACKELYN Screen Pos H 04/05/18 10:31 WBC RBC Hgb Hct MCV MCH MCHC RDW Plt Count MPV Neut % (Auto) Lymph % (Auto) Randall % (Auto) Eos % (Auto) Baso % (Auto) Neut # (Auto) Lymph # (Auto) Randall # (Auto) Eos # (Auto) Baso # (Auto) WBC Differential Differential Comment Sodium 136 Potassium 4.0 Chloride 102 Carbon Dioxide 27.3 Anion Gap 7 BUN 12 Creatinine 0.72 Estimated GFR Greater than 89 Random Glucose 157 H Calcium 8.7 Total Creatine Kinase CK-MB (CK-2) CK-MB (CK-2) % JACKELYN Screen Medications: Active Medications Generic Name Dose Route Start Last Admin Trade Name Freq PRN Reason Stop Dose Admin Hydrocodone Bitart/Acetaminophen 1 tab 04/02/18 20:16 04/05/18 11:10 [place] 10/325 PO 1 tab Q4H PRN Administration PAIN 1 - 10 Enoxaparin Sodium 30 mg 04/02/18 08:15 04/05/18 09:23 Lovenox Inj SQ 30 mg Q24H LORIE Administration Filgrastim 480 mcg 04/04/18 14:00 04/05/18 13:30 Neupogen Inj SQ 480 mcg DAILY@1400 LORIE Administration Hydromorphone HCl 1 mg 04/03/18 19:40 04/03/18 21:20 Dilaudid Pf Inj IV.PUSH 1 mg Q4H PRN Administration BREAKTHROUGH PAIN Potassium Chloride/Sodium Chloride 1,000 mls @ 84 mls/hr 04/02/18 08:15 04/05 09:25 Potassium Chlor 20 Meq/Nacl 0.45% Inj IV.CONT 84 mls/hr .[id number] LORIE Administration Methylprednisolone Sodium Succinate 60 mg 04/03/18 20:00 04/05/18 09:24 Solumedrol Inj IV.PUSH 60 mg Q12HR LORIE Administration Senna/Docusate Sodium 1 tab 04/02/18 09:00 04/05/18 09:24 Char-Colace PO Not Given BID LORIE Sodium Chloride 2 ml 04/04/18 21:00 04/05/18 09:24 Ns Flush IV.FLUSH 2 ml BID LORIE Administration Objective Remarks: GENERAL: Well-nourished, well-developed young female patient, in no acute distress. SKIN: Warm and dry. HEAD: Normocephalic. EYES: No scleral icterus. No injection or drainage. NECK: Supple, trachea midline. CARDIOVASCULAR: Regular rate and rhythm without murmurs. RESPIRATORY: Posterior breath sounds clear, equal bilaterally. Nonlabored at rest. GASTROINTESTINAL: Abdomen soft, non-tender, nondistended. EXTREMITIES: No cyanosis, or edema. MUSCULOSKELETAL: Adequate muscle tone. NEUROLOGICAL: No obvious focal deficit. Awake, alert, and oriented x3. PSYCHIATRIC: Appropriate mood and affect; insight and judgment normal. Assessment/Plan - Plan Ms. Godinez is a pleasant 22-year-old female, with a history of systemic lupus , diagnosed in February 2017. She is currently under the care of pricing manager, Dr. Meredith. The patient has been treated with steroids and Plaquenil. Recently she was tapered down on the prednisone and started on CellCept, 4-5 days prior to admission. She was admitted to the hospital for myositis and rhabdomyolysis. Hematology was consulted for severe neutropenia. Plan: 1. Neutropenia, secondary to Plaquenil and CellCept. Patient received Neupogen and her absolute neutrophil count increased to 8000. 2. Questionable myositis, CK is trending down. Management per attending. 3. Continue supportive care. - Attending Statement The exam, history, and the medical decision-making described in the above note were completed with the assistance of the mid-level provider. I reviewed and agree with the findings presented. I attest that I had a [id number] encounter with the patient on the same day, and personally performed and documented my assessment and findings in the medical record. No more pain in legs. Had neupogen yesterday. WBC back to normal. ANC >5,000 D/C neupogen. OK to d/c sign off
[2018-04-05 20:57] VITALS: BP 123/62; PULSE 88; TEMP 97.9
[2018-04-05 22:26] VITALS: RESP 18
[2018-04-06 15:39] LABS: Anti-Nuclear Antibody Pattern Speckled
== END 2018-04-05 21:05 | disposition home or self-care (01) ==
LOC: NEPC → NEDA 04:27 → N06 06:34
PROVIDERS: ADMIT Hospitalist; ATTEND Hospitalist